=== PATIENT | female | born 1955 | race Caucasian/White ===

== ENCOUNTER 2020-02-01 11:46 | Observation (INO) ==
[2020-02-01] MEDS ORDERED: SODIUM CHLORIDE 0.9% 500 ML IV SCH (12:15)
--- NOTE | 2020-02-01 12:16 | Emergency Department Note ---
Impression & Plan Syncope and collapse, Acute hypotension, Elevated troponin I level ED Provider Note Provider: Salvador Cat MD DATE OF SERVICE: 02/01/2020 CHIEF COMPLAINT: Syncope, weakness HISTORY OF PRESENT ILLNESS: Patient is a 64-year-old female with a past medical history of Sjogren's disease, MRSA infections, lupus, histoplasmosis presenting here today via EMS from her daughter's house in [facility] after syncopal event. Patient states 3 and half weeks ago she was in [place] where she lives and had syncopal episode and was taken to hospital in found to have severe cardiac disease requiring 3 stents. Patient states that she did well and went home had a UTI and was back for a night and then as her daughter lives in [facility] here came home with her to recover here. Patient states she is been doing well until yesterday she started feel generally weak. She had some possible near syncope yesterday at home but was doing well when she awoke this morning. Went down had breakfast okay. Patient states that she then went for a shower and in the shower suddenly became dizzy and then collapsed. She denies striking her head or head pain. She denies any chest pain palpitations sensation or shortness of breath during this. She states she was a little bit nauseous yesterday but not today. Daughter states she heard the sound went to check on her and the patient was on the floor not complaining of pain but then for about 90 seconds began to moan and was not very responsive although leaning into her. Had a darkish bowel movement at that time. She the patient denies any history of bloody or dark bowel movements in the past and there was no blood per the daughter and today's. EMS was activated at this point and she syncopized several more times for EMS upon their arrival was found to be hypotensive. Brought here for further care. Patient currently is lying in stretcher and denies complaint. Denies any pain, specifically chest pain or abdominal pain or head pain, denies any shortness of breath or palpitation sensation. Denies any nausea or abdominal discomfort. Patient states she does feel maybe a little bit generally weak particularly earlier and yesterday but not so much at the moment lying flat. Patient states that she has been wearing a LifeVest since discharge due to a reported EF of around 20% but was obviously not wearing it during the incident in the shower today. She has not had any discharges of the LifeVest per her report. REVIEW OF SYSTEMS: A total of 10 review of systems was obtained and negative except as stated above in the HPI. PAST MEDICAL HISTORY: As noted above MEDICATIONS: Reviewed home medication list the patient presents with. SOCIAL HISTORY: Resident of [place] but currently staying in town with daughter. PHYSICAL EXAM: GENERAL: alert and oriented in no acute distress on stretcher Head: normocephalic and atraumatic EYES: No injection, discharge or icterus. NECK: Trachea midline. Supple. ENT: Mucous membranes pink and moist. LUNGS: Airway patent. No retractions. Breath sounds clear with good air entry bilaterally. HEART: Regular rate and rhythm. No chest wall tenderness ABDOMEN: Soft and non-tender, without guarding or rebound. SKIN: Acyanotic, warm, dry EXTREMITIES: Without swelling, tenderness or deformity NEUROLOGICAL: No focal deficits. No aphasia. No facial droop or slurred speech. Normal strength and tone in the extremities. Sensation to gross touch normal. EK normal sinus rhythm without PVC or PAC. There is lateral V5 V6 and V4 slight ST depression with significant T wave inversion. aVL T wave inversion noted. Prolonged QT. No priors available CONTINUOUS CARDIAC MONITORING: was ordered and showed a heart rate of 76 bpm in normal sinus rhythm Patient's laboratory studies and imaging reviewed. Differential includes Vasovagal event, dehydration, infection, hypoglycemia, electrolyte abnormalities, cardiac sources, intracerebral event, pulmonary embolism, seizure, toxicologic, neurologic, as well as other pathologies. IMPRESSION/MEDICAL DECISION MAKING: Patient presents after syncopal events and weakness. Patient is a fairly benign exam but notable hypotension on initial vital signs. Given a small fluid bolus cautiously given her history of reduced EF. EKG shows some lateral changes and T wave inversions but unsure of prior morphologies is no priors are available. Patient persistently hypotensive here but again asymptomatic without chest pain. She has not been out of bed during her time here. Laboratory studies show mild anemia but similar from the portal values availed to me that the patient's daughter is able to bring up on their computer. White count of 12 of unclear significance. Chest x-ray that evidence of pneumonia or pulmonary edema. Troponin is slightly elevated unsure if this is just residual from her cardiac event. No significant electrolyte abnormality and no significant renal dysfunction. Given the recent travel and her persistent hypotension CT of the chest was completed exclude PE. CT scan without evidence of this or occult pneumonia. Placed an 18-gauge IV and the right arm with ultrasound guidance for this. Patient requires admission in any event. Patient's daughter was able obtain from the portal some imaging from prior transthoracic echo from January 12 showing an EF of 20%. Do concerned she could have worsening cardiac issue although again denies any acute pain at this point. Hospitalist was contacted. DIAGNOSIS: Hypotension, syncope, elevated troponin DISPOSITION: Hospitalist will evaluate Patient was agreeable with this plan. Critical Care I have personally spent 32 minutes of critical care time in the direct management of this patient. This includes bedside care, interpretation of d iagnostic studies, and testing, discussion with consultants, patient, and family members, and other required patient management activities. These 32 minutes is in excess of all separately billable procedures. Past Med/Surg History Medical History (Updated 02/01/20 @ 18:25 by Nicki Cornelius MD) DM2 (diabetes mellitus, type 2) GERD (gastroesophageal reflux disease) Hypothyroidism Insomnia Lupus [place] (myocardial infarction) Osteoporosis Rheumatoid arthritis UTI (urinary tract infection) Surgical History (Updated 02/01/20 @ 18:25 by Nicki Cornelius MD) H/O arthroscopic knee surgery H/O: hysterectomy History of open reduction and internal fixation (ORIF) procedure S/P appendectomy Social History (Updated 02/01/20 @ 18:26 by Nicki Cornelius MD) Smoking Status: Former smoker Age Started Using Tobacco: 17; Age Quit Using Tobacco: 64; packs per day: 0.5; Second Hand Exposure: No; Hx Alcohol Use: Yes Alcohol type: wine Hx Substance Use: No Preferred Language: Nepalese [employer]inder [employer] Feeder Required: No Beliefs That Will Affect Care: Yazdanism Current Living Situation: Family Feels Safe at Home: Yes Assistive Devices: Cane, Denture - Upper, Denture - Lower and Glasses Allergies Allergies Allergy/AdvReac Type Severity Reaction Status Date / Time metoclopramide Allergy Severe Breathing Unverified 02/01/20 12:48 Trouble Home Meds Home Medications Medication Instructions Recorded Confirmed amitriptyline 10 - 20 mg PO HS 02/01/20 02/01/20 aspirin 81 mg PO DAILY 02/01/20 02/01/20 atorvastatin 40 mg PO DAILY 02/01/20 02/01/20 denosumab [Prolia] 60 mg SUBCUT Q6M 02/01/20 02/01/20 furosemide 20 mg PO DAILY 02/01/20 02/01/20 levothyroxine 100 mcg PO 0600 02/01/20 02/01/20 linagliptin [Tradjenta] 5 mg PO DAILY 02/01/20 02/01/20 lisinopril 2.5 mg PO BID 02/01/20 02/01/20 melatonin 10 mg PO HS 02/01/20 02/01/20 metoprolol succinate 12.5 mg PO BID 02/01/20 02/01/20 omeprazole 40 mg PO DAILY 02/01/20 02/01/20 oxycodone-acetaminophen [Percocet] 1 tab PO Q6H PRN 02/01/20 02/01/20 polyethylene glycol 3350 [Miralax] 17 g PO DAILY 02/01/20 02/01/20 potassium 99 mg PO DAILY 02/01/20 02/01/20 prednisone 5 mg PO HS 02/01/20 02/01/20 sertraline [Zoloft] 50 mg PO DAILY 02/01/20 02/01/20 ticagrelor [Brilinta] 90 mg PO BID 02/01/20 02/01/20 Results & Data (ED) Vital Signs Vital Signs - 24 hr 02/01/20 11:53 02/01/20 12:03 02/01/20 12:10 Temperature 37 C Temperature Source Oral Pulse Rate 77 78 Pulse Rate from SpO2 Sensor Pulse Rhythm Regular Respiratory Rate 19 20 Respiratory Effort / Characteristics Non-Labored Spontaneous Respiratory Depth Normal Respiratory Pattern Regular Blood Pressure 72/47 L 72/47 L Blood Pressure Mean 55 49 Pulse Oximetry 98 98 99 Oxygen Delivery Method Room Air Room Air Sepsis Recent Fever Within 48 Hours No Sepsis New/Unexplained Change in Mental Status No Sepsis Action Taken by Nursing No Action Required 02/01/20 12:18 02/01/20 12:30 02/01/20 12:45 Temperature Temperature Source Pulse Rate 79 77 76 Pulse Rate from SpO2 Sensor 79 78 77 Pulse Rhythm Respiratory Rate 13 18 20 Respiratory Effort / Characteristics Respiratory Depth Respiratory Pattern Blood Pressure 78/43 L 83/49 L 87/57 L Blood Pressure Mean 47 52 66 Pulse Oximetry 100 100 96 Oxygen Delivery Method Sepsis Recent Fever Within 48 Hours Sepsis New/Unexplained Change in Mental Status Sepsis Action Taken by Nursing 02/01/20 13:00 02/01/20 13:15 02/01/20 13:30 Temperature Temperature Source Pulse Rate 78 78 77 Pulse Rate from SpO2 Sensor 78 78 78 Pulse Rhythm Respiratory Rate 18 18 18 Respiratory Effort / Characteristics Respiratory Depth Respiratory Pattern Blood Pressure 81/53 L 79/55 L 87/62 L Blood Pressure Mean 59 67 67 Pulse Oximetry 99 99 99 Oxygen Delivery Method Sepsis Recent Fever Within 48 Hours Sepsis New/Unexplained Change in Mental Status Sepsis Action Taken by Nursing 02/01/20 13:33 02/01/20 13:45 02/01/20 14:00 Temperature Temperature Source Pulse Rate 81 81 79 Pulse Rate from SpO2 Sensor 82 81 80 Pulse Rhythm Respiratory Rate 13 16 19 Respiratory Effort / Characteristics Respiratory Depth Respiratory Pattern Blood Pressure 73/53 L 76/57 L 80/61 L Blood Pressure Mean 57 62 66 Pulse Oximetry 100 99 100 Oxygen Delivery Method Sepsis Recent Fever Within 48 Hours Sepsis New/Unexplained Change in Mental Status Sepsis Action Taken by Nursing 02/01/20 14:24 02/01/20 14:30 02/01/20 14:45 Temperature Temperature Source Pulse Rate 79 78 79 Pulse Rate from SpO2 Sensor 82 78 80 Pulse Rhythm Respiratory Rate 17 16 17 Respiratory Effort / Characteristics Respiratory Depth Respiratory Pattern Blood Pressure 76/52 L 80/52 L 79/52 L Blood Pressure Mean 59 57 59 Pulse Oximetry 92 98 100 Oxygen Delivery Method Sepsis Recent Fever Within 48 Hours Sepsis New/Unexplained Change in Mental Status Sepsis Action Taken by Nursing 02/01/20 15:16 02/01/20 15:30 02/01/20 15:31 Temperature Temperature Source Pulse Rate 81 78 80 Pulse Rate from SpO2 Sensor 83 78 84 Pulse Rhythm Respiratory Rate 14 22 13 Respiratory Effort / Characteristics Respiratory Depth Respiratory Pattern Blood Pressure 63/45 L Blood Pressure Mean 49 Pulse Oximetry 100 100 100 Oxygen Delivery Method Sepsis Recent Fever Within 48 Hours Sepsis New/Unexplained Change in Mental Status Sepsis Action Taken by Nursing Laboratory Data Result diagrams: 02/01/20 12:30 02/01/20 12:30 Lab Results 02/01/20 02/01/20 02/01/20 Range/Units 12:30 12:30 12:30 WBC 12.70 H (4.8-10.8) K/uL RBC 3.72 L (4.2-5.4) M/uL Hgb 10.3 L (12.0-16.0) g/dL Hct 33.2 L (37-47) % MCV 89.2 (80-100) fL MCH 27.7 (25-34) pg MCHC 31.0 L (32-36) g/dL RDW Std Deviation 50.5 H (36.4-46.3) fL RDW Coeff of Severino 15.5 H (11.5-14.5) % Plt Count 315 (130-400) K/uL MPV 10.6 H (7.4-10.4) fL Immature Gran % (Auto) 0.3 % Neut % (Auto) 78.3 % Lymph % (Auto) 14.3 % Citrus % (Auto) 6.1 % Eos % (Auto) 0.8 % Baso % (Auto) 0.2 % Neut # (Auto) 9.95 H (1.4-6.5) K/uL Lymph # (Auto) 1.82 (1.2-3.4) K/uL Citrus # (Auto) 0.77 H (0.11-0.59) K/uL Eos # (Auto) 0.10 (0-0.5) K/uL Baso # (Auto) 0.02 (0-0.2) K/uL Immature Gran # (Auto) 0.04 H (0.00-0.02) K/uL PT 10.9 (9.0-12.0) Seconds INR 1.0 (0.9-1.1) APTT < 20.0 L (21.0-31.0) Seconds PTT Ratio 0.7 Sodium 139 (136-145) mmol/L Potassium 3.5 (3.5-5.1) mmol/L Chloride 104 (98-107) mmol/L Carbon Dioxide 26 (21-32) mmol/L Anion Gap 9.0 (3-11) BUN 17 (7-18) mg/dl Creatinine 1.01 (0.6-1.2) mg/dl Est Cr Clr Drug Dosing 46.7 ml/min Est GFR ( Amer) 69.1 Est GFR (Non-Af Amer) 59.6 BUN/Creatinine Ratio 16.9 (10-20) Glucose 154 H (70-99) mg/dl Calcium 8.6 (8.5-10.1) mg/dl Magnesium 2.0 (1.8-2.4) mg/dl Total Bilirubin 0.3 (0.2-1) mg/dl AST 17 (15-37) U/L ALT 19 (12-78) U/L Alkaline Phosphatase 85 (45-117) U/L Troponin I 0.069 H* (0-0.045) ng/ml Total Protein 7.2 (6.4-8.2) gm/dl Albumin 3.3 L (3.4-5.0) gm/dl Globulin 3.9 (2.5-4.0) gm/dl Albumin/Globulin Ratio 0.8 L (0.9-2) TSH 2.920 (0.300-4.500) uIu/ml Random Cortisol mcg/dl 02/01/20 Range/Units 12:39 WBC (4.8-10.8) K/uL RBC (4.2-5.4) M/uL Hgb (12.0-16.0) g/dL Hct (37-47) % MCV (80-100) fL MCH (25-34) pg MCHC (32-36) g/dL RDW Std Deviation (36.4-46.3) fL RDW Coeff of Severino (11.5-14.5) % Plt Count (130-400) K/uL MPV (7.4-10.4) fL Immature Gran % (Auto) % Neut % (Auto) % Lymph % (Auto) % Citrus % (Auto) % Eos % (Auto) % Baso % (Auto) % Neut # (Auto) (1.4-6.5) K/uL Lymph # (Auto) (1.2-3.4) K/uL Citrus # (Auto) (0.11-0.59) K/uL Eos # (Auto) (0-0.5) K/uL Baso # (Auto) (0-0.2) K/uL Immature Gran # (Auto) (0.00-0.02) K/uL PT (9.0-12.0) Seconds INR (0.9-1.1) APTT (21.0-31.0) Seconds PTT Ratio Sodium (136-145) mmol/L Potassium (3.5-5.1) mmol/L Chloride (98-107) mmol/L Carbon Dioxide (21-32) mmol/L Anion Gap (3-11) BUN (7-18) mg/dl Creatinine (0.6-1.2) mg/dl Est Cr Clr Drug Dosing ml/min Est GFR ( Amer) Est GFR (Non-Af Amer) BUN/Creatinine Ratio (10-20) Glucose (70-99) mg/dl Calcium (8.5-10.1) mg/dl Magnesium (1.8-2.4) mg/dl Total Bilirubin (0.2-1) mg/dl AST (15-37) U/L ALT (12-78) U/L Alkaline Phosphatase (45-117) U/L Troponin I (0-0.045) ng/ml Total Protein (6.4-8.2) gm/dl Albumin (3.4-5.0) gm/dl Globulin (2.5-4.0) gm/dl Albumin/Globulin Ratio (0.9-2) TSH (0.300-4.500) uIu/ml Random Cortisol 25.69 mcg/dl Administered Medications Discontinued Medications Sodium Chloride (Nss) 500 mls @ 999 mls/hr IV .Q31M MARY Stop: 02/01/20 12:45 Last Infusion: 02/01/20 14:28 Dose: 0 mls/hr Documented by: [id number] Admin: 02/01/20 12:19 Dose: 999 mls/hr Documented by: [id number] Ioversol (Optiray 320 125ml) 120 ml IV ONCE ONE Stop: 02/01/20 14:17 Last Admin: 02/01/20 14:17 Dose: 120 ml Documented by: [id number] Potassium Chloride (Potassium Chloride 20 Meq Tabcr) 40 meq PO NOW STA Stop: 02/01/20 17:47 Last Admin: 02/01/20 18:09 Dose: 40 meq Documented by: [id number] Discharge Plan Visit Data Chief Complaint: Syncope Stated Complaint: Syncope, [place] 2 weeks ago ED Provider: Salvador Cat Discharge Problem: Syncope and collapse, Acute hypotension, Elevated troponin I level Patient Disposition: Admitted As Inpatient Discharge Instructions Interventions: ED Discharge Assessment Last Done: 02/01/20 17:44
--- NOTE | 2020-02-01 12:35 | XRay Report ---
XR chest 1V portable HISTORY: 64 years-old Female syncope acute syncope COMPARISON: None TECHNIQUE: Portable AP view of the chest FINDINGS: Cardiac silhouette is mildly enlarged. No pneumothorax, pleural effusion, airspace consolidation or o vert pulmonary edema. Coronary arterial stent grafts. Partially imaged cervical spine fusion hardware . Surgical clips project over the right neck. Subacute appearing healing rib fractures of the anterol ateral right fifth, sixth and seventh ribs. IMPRESSION: 1. Cardiomegaly without acute process. 2. Subacute healing fractures of the anterior right fifth, sixth and seventh ribs. ACT 112: Negative or not required by law. The above report was generated using voice recognition software. It may contain grammatical, syntax o r spelling errors. Electronically signed by: Too Cedeno M.D. 02/01/2020 12:34 PM
[2020-02-01 12:51] LABS: Basophils # (auto) 0.02 K/uL (0-0.2); Basophils % (auto) 0.2 %; Eosinophils % (auto) 0.8 %; Hematocrit (blood only) 33.2 % (37-47); Hemoglobin 10.3 g/dL (12.0-16.0); Immature Granulocytes # (auto) 0.04 K/uL (0.00-0.02); Immature Granulocytes % (auto) 0.3 %; Lymphocytes # (auto) 1.82 K/uL (1.2-3.4); Lymphocytes % (auto) 14.3 %; Mean Corpuscular Hemoglobin 27.7 pg (25-34); Mean Corpuscular Volume 89.2 fL (80-100); Mean Platelet Volume 10.6 fL (7.4-10.4); Monocytes # (auto) 0.77 K/uL (0.11-0.59); Monocytes % (auto) 6.1 %; Neutrophils # (auto) 9.95 K/uL (1.4-6.5); Neutrophils % (auto) 78.3 %; Platelet Count 315 K/uL (130-400); RDW Coefficient of Variation 15.5 % (11.5-14.5); RDW Standard Deviation 50.5 fL (36.4-46.3); Red Blood Count 3.72 M/uL (4.2-5.4)
[2020-02-01 12:59] LABS: Partial Thromboplastin Ratio 0.7; Partial Thromboplastin Time < 20.0 Seconds (21.0-31.0); Prothrombin Time 10.9 Seconds (9.0-12.0)
[2020-02-01 13:13] LABS: Albumin Level 3.3 gm/dl (3.4-5.0); BUN Creatinine Ratio 16.9 (10-20); Calcium 8.6 mg/dl (8.5-10.1); Creatinine Clr Calc Pharmacy 46.7 ml/min; Est GFR (African American) 69.1; Est GFR (Non-African American) 59.6; Potassium 3.5 mmol/L (3.5-5.1)
[2020-02-01 13:24] LABS: Albumin Globulin Ratio 0.8 (0.9-2); Bilirubin,Total 0.3 mg/dl (0.2-1); Globulin 3.9 gm/dl (2.5-4.0); Thyroid Stimulating Hormone 2.92 uIu/ml (0.300-4.500); Total Protein 7.2 gm/dl (6.4-8.2); Troponin I 0.069 ng/ml (0-0.045)
[2020-02-01] MEDS ORDERED: OPTIRAY 320 125ml IV ONE (14:16)
--- NOTE | 2020-02-01 14:33 | CT Scan Report ---
CHEST CTA for PULMONARY ARTERIES CT DOSE: 227.23 mGy.cm HISTORY: PE, syncope, travel TECHNIQUE: Multiaxial CT images of the chest were performed following the intravenous administration of contrast to evaluate the pulmonary arteries. Maximal intensity projection images were also obtaine d. A dose lowering technique was utilized adhering to the principles of ALARA. COMPARISON STUDY: Chest 02/01/2020. FINDINGS: There are trace bilateral pleural effusions. Limited views of the upper abdomen demonstrate normal liver and spleen. The heart is mildly enlarged. No pericardial effusion. Multiple surgical cl ips adjacent to the thyroid gland. Partial visualization of cervical spinal fusion hardware. Mild dif fuse body wall edema. No significant mediastinal or hilar lymphadenopathy. Normal caliber esophagus. There is a calcified mediastinal lymph nodes. Normal caliber thoracic aorta with no evidence for diss ection. Heavily calcified bilateral carotid arteries with multiple left coronary artery stents noted. No filling defects within the pulmonary arteries to suggest pulmonary embolus. Healing right fifth t hrough seventh rib fractures. No acute fractures within the visualized osseous structures. Patchy and linear densities within the lung bases posteriorly favor subsegmental atelectasis. No pneumothorax. The central airways are patent. Mild emphysema. IMPRESSION: 1. No evidence for pulmonary embolus. 2. Trace bilateral pleural effusions. 3. Bibasilar linear densities favor subsegmental atelectasis. 4. Mild emphysema. 5. Healing right fifth through seventh rib fractures. No pneumothorax. ACT 112: Negative or not required by law. Electronically signed by: Mohsen Guerin M.D. 02/01/2020 2:32 PM
[2020-02-01] MEDS ORDERED: ONDANSETRON INJ 2 MG/ML 2 ML VIAL IV PRN (15:34)
[2020-02-01] MEDS ORDERED: ACETAMINOPHEN 325 MG TAB PO PRN (15:34)
[2020-02-01] MEDS ORDERED: MAGNESIUM HYDROXIDE SUSP 30 ML UDC PO PRN (15:34)
[2020-02-01] MEDS ORDERED: NITROGLYCERIN SL 0.4 MG/TAB TAB SL PRN (15:34)
[2020-02-01] MEDS ORDERED: POLYETHYLENE (MIRALAX) 17 GM PACK PO PRN (15:34)
--- NOTE | 2020-02-01 15:53 | Cardiology Consultation ---
Date of Consultation February 01, 2020 Assessment & Plan (1) Syncope and collapse: Her syncopal events sound like primary hypotension rather than an arrhythmia, there does seem to be an orthostatic component but she is supine now and remains hypotensive. I cannot exclude an arrhythmia except that the rescue people were there during several of her events after the initial one and should have noted if it was an arrhythmia but I do not have documentation of that. (2) Acute hypotension: She is very hypotensive now, she is on minimal cardiac medications and no changes were made to her medications recently and she has been taking them regularly and she seems very compliant. Barring an error in medications I suspect the low blood pressures from some other cause. It does not seem like a cardiac event but I will get an echocardiogram to exclude a pericardial effusion, etc. Of note her blood pressure was normal in office visit 1 week ago and her heart rate was the same then as it is today. (3) Elevated troponin I level: Her troponin level is slightly elevated, I suspect it would be due to demand ischemia and hypotension rather than a primary cardiac event but I would trend troponins to see the pattern. (4) Ischemic cardiomyopathy: She has a presumed ischemic cardiomyopathy. I do not have documentation of that however based on her daughter's history of recent diagnosis of coronary disease and recent stent placement and ejection fraction of 20% several weeks ago I suspect it is ischemic, or possibly ischemic superimposed on nonischemic but that is less likely. She does have wall motion normalities on her echocardiogram. She is being treated for an ischemic cardiomyopathy with low- dose medications (she may not tolerate high dose) and she has a LifeVest in place for primary prevention. History of Present Illness Reason for Consultation: Syncope, cardiomyopathy History of Present Illness This is a 64-year-old woman who lives in [place] however had medical problems there about 1 month ago and therefore was brought to [place] by her daughter to live here. Prior to having problems in [place] about 5 weeks ago she had no known cardiac history. I do not have detailed records, her daughter is present and provides some history. Apparently she was found unresponsive outside of her residence, was brought to the emergency room in [place] about 5 weeks ago and ended up in ICU on a ventilator. I do not know exactly what transpired but she apparently has an ischemic cardiomyopathy, had catheterization where she had stent placement in [place] and ultimately was discharged with a LifeVest. Her daughter then drove her back to [place] about a week ago. She was seen by her mobile developer about a week ago before they left and was doing well. She was feeling relatively well until she took a showe r today and had a syncopal event in the shower, she is not wearing the LifeVest because of the shower. Her daughter helped her in the shower, they did not try to have her set up but called 911 and apparently while the rescue folks were there she had several more unresponsive or partially unresponsive spells but I do not know where the rhythm was documented. She has not had these spells before, she has not had any LifeVest shocks while she was wearing it. She did bring an echocardiography report done January 13, 2020 where her left ventricular ejection fraction is 20% with a moderately enlarged left ventricular cavity and multiple regional wall motion abnormalities. She does have a history of lupus and was on steroids, evidently was off of them in the hospital (at least to her knowledge) and a week ago was started back on prednisone 5 mg daily. Her cardiac medications have not changed. According to records that she brought at her office visit January 24, 2020 her blood pressure was 116/72 and pulse was 78. Based on her medication record she is on furosemide 20 mg daily, lisinopril 2.5 mg twice daily, Toprol succinate 12.5 mg twice daily, prednisone 5 mg daily and no other vasoactive medications. At the time of my evaluation she is feeling well, she is supine in bed and not having any lightheadedness, dizziness, shortness of breath or chest discomfort. Initial evaluation in the emergency room includes electrocardiography where her heart rate is normal, her electrocardiogram is abnormal but without acute change, her troponin is slightly elevated and chest x-ray and CT scan of the chest are unremarkable. Allergies Allergy/AdvReac Type Severity Reaction Status Date / Time metoclopramide Allergy Severe Breathing Unverified 02/01/20 12:48 Trouble Home Medications Home Medications Medication Instructions Recorded Confirmed Type amitriptyline 10 - 20 mg PO HS 02/01/20 02/01/20 History aspirin 81 mg PO DAILY 02/01/20 02/01/20 History atorvastatin 40 mg PO DAILY 02/01/20 02/01/20 History denosumab [Prolia] 60 mg SUBCUT Q6M 02/01/20 02/01/20 History furosemide 20 mg PO DAILY 02/01/20 02/01/20 History levothyroxine 100 mcg PO 0600 02/01/20 02/01/20 History linagliptin [Tradjenta] 5 mg PO DAILY 02/01/20 02/01/20 History lisinopril 2.5 mg PO BID 02/01/20 02/01/20 History melatonin 10 mg PO HS 02/01/20 02/01/20 History metoprolol succinate 12.5 mg PO BID 02/01/20 02/01/20 History omeprazole 40 mg PO DAILY 02/01/20 02/01/20 History oxycodone-acetaminophen [Percocet] 1 tab PO Q6H PRN 02/01/20 02/01/20 History polyethylene glycol 3350 [Miralax] 17 g PO DAILY 02/01/20 02/01/20 History potassium 99 mg PO DAILY 02/01/20 02/01/20 History prednisone 5 mg PO HS 02/01/20 02/01/20 History sertraline [Zoloft] 50 mg PO DAILY 02/01/20 02/01/20 History ticagrelor [Brilinta] 90 mg PO BID 02/01/20 02/01/20 History Patient History Medical History Osteoporosis Social History Smoking Status: Former smoker Preferred Language: Icelandic Feels Safe at Home: Yes Review of Systems Review of Systems: All systems reviewed & are unremarkable except as noted in HPI & below Physical Exam Physical Exam: Constitutional: Alert, cooperative and in no distress. HEENT: Unremarkable Neck: No jugular venous distention, carotid pulses are normal and equal bilaterally without bruits. Pulmonary: Slight basilar crackles, not suggestive of CHF bilaterally. Cardiac: Regular rhythm with no murmur, gallop or rub. Abdomen: Soft, nontender with normal bowel sounds. Extremities: No edema. Distal pulses intact. Neurologic: No focal findings. Gait is steady. Skin: No rash, ecchymoses or petechiae. Results & Data ([facility]) Vital Signs (Past 12 Hours) Vital Signs Temp Pulse Resp BP Pulse Ox 02/01/20 14:45 79 17 79/52 L 100 02/01/20 14:30 78 16 80/52 L 98 02/01/20 14:24 79 17 76/52 L 92 02/01/20 14:00 79 19 80/61 L 100 02/01/20 13:45 81 16 76/57 L 99 02/01/20 13:33 81 13 73/53 L 100 02/01/20 13:30 77 18 87/62 L 99 02/01/20 13:15 78 18 79/55 L 99 02/01/20 13:00 78 18 81/53 L 99 02/01/20 12:45 76 20 87/57 L 96 02/01/20 12:30 77 18 83/49 L 100 02/01/20 12:18 79 13 78/43 L 100 02/01/20 12:10 99 02/01/20 12:03 78 20 72/47 L 98 02/01/20 11:53 37 C 77 19 72/47 L 98 Laboratory Results Cardiac Enzymes 02/01/20 Range/Units 12:30 AST 17 (15-37) U/L Troponin I 0.069 H* (0-0.045) ng/ml Coagulation 02/01/20 Range/Units 12:30 PT 10.9 (9.0-12.0) Seconds APTT < 20.0 L (21.0-31.0) Seconds CBC 02/01/20 Range/Units 12:30 WBC 12.70 H (4.8-10.8) K/uL RBC 3.72 L (4.2-5.4) M/uL Hgb 10.3 L (12.0-16.0) g/dL Hct 33.2 L (37-47) % Plt Count 315 (130-400) K/uL Neut # (Auto) 9.95 H (1.4-6.5) K/uL Lymph # (Auto) 1.82 (1.2-3.4) K/uL R[place] # (Auto) 0.77 H (0.11-0.59) K/uL Eos # (Auto) 0.10 (0-0.5) K/uL Baso # (Auto) 0.02 (0-0.2) K/uL Comprehensive Metabolic Panel 02/01/20 Range/Units 12:30 Sodium 139 (136-145) mmol/L Potassium 3.5 (3.5-5.1) mmol/L Chloride 104 (98-107) mmol/L Carbon Dioxide 26 (21-32) mmol/L BUN 17 (7-18) mg/dl Creatinine 1.01 (0.6-1.2) mg/dl Glucose 154 H (70-99) mg/dl Calcium 8.6 (8.5-10.1) mg/dl AST 17 (15-37) U/L ALT 19 (12-78) U/L Alkaline Phosphatase 85 (45-117) U/L Total Protein 7.2 (6.4-8.2) gm/dl Albumin 3.3 L (3.4-5.0) gm/dl Intake and Output 02/01/20 02/01/20 02/01/20 06:59 14:59 22:59 Intake Total 500 / 500 Balance 500 / 500 Intake: IV 500 / 500 Nss 500 ml @ 999 mls/hr IV . 500 / 500 Q31M [facility] Rx#:[id number] Other: Weight 51.2 kg Patient Weight 02/02/20 06:59 Weight 51.2 kg Diagnostic Findings ECG: An electrocardiogram in the emergency room shows sinus rhythm at 78 bpm with diffuse T wave abnormalities and a somewhat prolonged QT interval. PG Care Time/CCT Total # of Minutes Spent Total Time Spent with Patient: Total time spent is greater than 50% in coordination of care (as documented) at patient's floor/unit and/or counseling patient: Coding Level of Care Code 56776 Initial Inpt Care Lvl 3 Diagnoses Syncope and collapse R55 Acute hypotension I95.9 Elevated troponin I level R79.89 Ischemic cardiomyopathy I25.5
--- NOTE | 2020-02-01 16:38 | History & Physical Report ---
Date of Service February 01, 2020 Assessment & Plan (1) Syncope and collapse: 64 yo F with PMH SC, CAD, chronic systolic CHF with ischemic cardiomyopathy and EF 20%, Lupus, RA on chronic prednisone, hypothyroidism admitted for workup after syncopal episode leading to fall and unresponsiveness in the shower. - Electrolytes unremarkable, normal Cr - TSH WNL - cardiac vs. orthostatic hypotension exacerbated by new cardiac medications and adrenal insufficiency. Sudden onset of symptoms concerning for cardiac arrhythmia, however patient's story of abruptly stopping steroids for multiple weeks supports adrenal/orthostatic picture. Will defer orthostatic vitals until blood pressure higher with sys>90. - ECHO at OSH showed EF 20%; repeat ECHO ordered - trend troponins (initial 0.069) to rule out ischemic event as the cause of syncope - continuous tele monitoring - cardiology consult - holding all HTN medications (lisinopril, metoprolol, lasix) - 25 mg IV hydrocortisone Q8H ordered to help adrenal suppression, after random cortisol added on (2) Acute hypotension: likely secondary to adrenal insufficiency and beta blockade with new cardiac regimen Did not respond to fluid bolus in the ER Giving IV hydrocortisone (3) Ischemic cardiomyopathy: cardiac workup as above pt would benefit from having a art tracer point of contact in [place] after discharge as she plans to make frequent long-term trips back and forth (4) Elevated troponin I level: trending, cardiac workup as above (5) Rib fractures: Noted on imaging Healing could be from previous syncopes 1 month ago Home Percocet as needed (6) CAD (coronary artery disease), [place] coronary artery: With history of 3 drug-eluting stents placed 1 month ago at outside hospital in [place] ECG here with T wave inversions in the lateral leads, no old EKG to compare to. Patient denies chest pain Continue aspirin, Brilinta, statin Holding home metoprolol and lisinopril due to hypotension (7) Depression with anxiety: Continue home sertraline (8) Chronic systolic (congestive) heart failure: LVEF 20% on echocardiogram from outside hospital, presumed ischemic given that she had 3 drug-eluting stents recently placed Holding guideline directed medical therapy of metoprolol and lisinopril and holding Lasix at this time due to hypotension Has life vest but does not need to wear while on nurse monitoring in PCU Will need reevaluation of her LVEF 90 days from previous to see if LV function recovers (9) Insomnia: continue amitriptyline 10 mg QHS for neuropathic pain/insomnia and melatonin (10) DM2 (diabetes mellitus, type 2): placed on trajenta during OSH stay because "sugars were uncontrolled" a1c ordered for am SSI (11) Hypothyroidism: continue 100 mcg levothyroxine TSH here is normal (12) GERD (gastroesophageal reflux disease): contineu 20 mg omeprazole daily (13) Rheumatoid arthritis: stress steroid burst of 25 mg IV Hydrocortisone Q8 as above (14) Lupus: (15) Osteoporosis: on prolia Q6M resolving R rib fractures 5-7, likely from initial fall weeks ago (16) Anemia: Hemoglobin 10, normocytic Likely secondary to chronic disease given recent prolonged hospitalization Check iron studies, B12, folate in the morning Follow CBC (17) DVT prophylaxis: DVT ppx: lovenox Q24h FEN/GI: heart healthy, low salt diet Code Status: full code Dispo: PCU History of Present Illness 64 yo F with PMH SC, Lupus, RA on chronic prednisone, hypothyroidism, stent placement x3, who presents to ED with CC syncope and unresponsiveness in the shower. In [place] She had an SC at the end of November this year, and a few weeks later? was hospitalized for syncope and found to have coronary artery disease requiring placement of 3 SOLEDAD. (Story from family is unclear, she was on a vent and in the ICU for a period of time prior to being able to have the stents placed). She was sent home with a Life Vest to wear all the time. (of note she states she did not receive her daily 5 mg prednisone for 3-4 weeks while in the hospital). She then drove with her daughter this past weekend from [place] to [facility] so she could stay here with her daughter and arrived here 3 nights ago. Yesterday she was feeling unwell and felt dizzy upon standing up from bed so she promptly sat back down. This morning she felt better and was able to get into the shower on her own. It was in the shower that she had the syncopal episode and fell into her shower seat. She denies any presyncopal symptoms; no lightheadedness,dizziness, blurry vision, palpitations, chest pain, trouble breathing. Daughter states patient was unresponsive for about 1 minute, at which time she called EMS to help bring her out of the shower and to the ER. She was able to quickly regain consciousness, but then was going in and out of consciousness? and unable to answer most of the EMS questions. In the ER she denies any current chest pain, SOB, dyspnea, palpitations, lightheadedness, dizziness while laying in bed. She denies any recent activity or life changes outside of driving to [place]. She has been wearing the Life Vest at all times except for when shower. She denies any BRBPR or melanotic stools, though her daughter says she had a dark BM in the shower after passing out. She was noted to be quite hypotensive in the ER with systolic blood pressures in the 70s and it did not respond to 500 mL bolus of normal saline. She is being admitted for ACS rule out/syncopal workup. Primary Care Provider: NO PCP Allergies Allergy/AdvReac Type Severity Reaction Status Date / Time metoclopramide Allergy Severe Breathing Unverified 02/01/20 12:48 Trouble Home Medications Home Medications Medication Instructions Recorded Confirmed Type amitriptyline 10 - 20 mg PO HS 02/01/20 02/01/20 History aspirin 81 mg PO DAILY 02/01/20 02/01/20 History atorvastatin 40 mg PO DAILY 02/01/20 02/01/20 History denosumab [Prolia] 60 mg SUBCUT Q6M 02/01/20 02/01/20 History furosemide 20 mg PO DAILY 02/01/20 02/01/20 History levothyroxine 100 mcg PO 0600 02/01/20 02/01/20 History linagliptin [Tradjenta] 5 mg PO DAILY 02/01/20 02/01/20 History lisinopril 2.5 mg PO BID 02/01/20 02/01/20 History melatonin 10 mg PO HS 02/01/20 02/01/20 History metoprolol succinate 12.5 mg PO BID 02/01/20 02/01/20 History omeprazole 40 mg PO DAILY 02/01/20 02/01/20 History oxycodone-acetaminophen [Percocet] 1 tab PO Q6H PRN 02/01/20 02/01/20 History polyethylene glycol 3350 [Miralax] 17 g PO DAILY 02/01/20 02/01/20 History potassium 99 mg PO DAILY 02/01/20 02/01/20 History prednisone 5 mg PO HS 02/01/20 02/01/20 History sertraline [Zoloft] 50 mg PO DAILY 02/01/20 02/01/20 History ticagrelor [Brilinta] 90 mg PO BID 02/01/20 02/01/20 History Past Med/Surg History Medical History (Updated 02/01/20 @ 21:57 by Elaine Lugo MD) CAD (coronary artery disease), [place] coronary artery Chronic systolic (congestive) heart failure Depression with anxiety DM2 (diabetes mellitus, type 2) GERD (gastroesophageal reflux disease) Hypothyroidism Insomnia Lupus SC (myocardial infarction) Osteoporosis Rheumatoid arthritis UTI (urinary tract infection) Surgical History (Updated 02/01/20 @ 18:25 by Nicki Cornelius MD) H/O arthroscopic knee surgery H/O: hysterectomy History of open reduction and internal fixation (ORIF) procedure S/P appendectomy Family History (Updated 02/01/20 @ 21:45 by Elaine Lugo MD) Other Family history non-contributory Social History (Updated 02/01/20 @ 18:26 by Nicki Cornelius MD) Smoking Status: Former smoker Age Started Using Tobacco: 17; Age Quit Using Tobacco: 64; packs per day: 0.5; Second Hand Exposure: No; Hx Alcohol Use: Yes Alcohol type: wine Hx Substance Use: No Preferred Language: Qatari Recreation Program Coordinator Required: No Beliefs That Will Affect Care: Bahai Current Living Situation: Family Feels Safe at Home: Yes Assistive Devices: Glasses Review of Systems Constitutional: + weight loss; no fever, no chills, no sweats and no fatigue Eyes: no blind spots and no diplopia Respiratory: no cough, no dyspnea, no pain on inspiration and no wheezing Cardiovascular: + chest pain, + lightheadedness, + syncope and + edema; no dyspnea on exertion, no palpitations and no calf pain Gastrointestinal: + heartburn and + melena; no abdominal pain, no nausea, no vomiting, no change in stools, no constipation, no diarrhea/loose stools and no blood in stools Genitourinary: no dysuria and no hematuria Musculoskeletal: + back pain Neurologic: + falls and + syncope Physical Exam Constitutional: + thin; no acute distress and not intoxicated appearing Eyes: PERRL, conjunctivae normal, anicteric sclerae Neck: trachea midline, no thyromegaly Respiratory: normal respiratory effort, lungs clear to auscultation no respiratory distress and no cough Auscultation: + wheezes; no crackles, no rales and no rhonchi Cardiovascular: RRR, no murmur, no edema Heart Sounds: no gallop, no murmur and no cardiac rub Vessels: posterior tibial pulses present Extremities: no edema Gastrointestinal (Abdomen): Inspection/Auscultation: abdomen normal to inspection and normal bowel sounds; abdomen not distended Percussion/Palpation: abdomen soft; abdomen nontender and no guarding Musculoskeletal: negative giancarlo's sign bilaterally, no calf tenderness to palpation or edema Skin: no rashes, warm and dry Neurologic: A&Ox3, moving all limbs spontaneously, no facial droop Results & Data Results & Data ([facility]) Vital Signs (Past 12 Hours) Vital Signs Temp Pulse Resp BP Pulse Ox 02/01/20 14:45 79 17 79/52 L 100 02/01/20 14:30 78 16 80/52 L 98 02/01/20 14:24 79 17 76/52 L 92 02/01/20 14:00 79 19 80/61 L 100 02/01/20 13:45 81 16 76/57 L 99 02/01/20 13:33 81 13 73/53 L 100 02/01/20 13:30 77 18 87/62 L 99 02/01/20 13:15 78 18 79/55 L 99 02/01/20 13:00 78 18 81/53 L 99 02/01/20 12:45 76 20 87/57 L 96 02/01/20 12:30 77 18 83/49 L 100 02/01/20 12:18 79 13 78/43 L 100 02/01/20 12:10 99 02/01/20 12:03 78 20 72/47 L 98 02/01/20 11:53 37 C 77 19 72/47 L 98 Laboratory Results WBC 12.70 K/uL (4.8-10.8) H 02/01/20 12:30 RBC 3.72 M/uL (4.2-5.4) L 02/01/20 12:30 Hgb 10.3 g/dL (12.0-16.0) L 02/01/20 12:30 Hct 33.2 % (37-47) L 02/01/20 12:30 MCV 89.2 fL (80-100) 02/01/20 12:30 MCH 27.7 pg (25-34) 02/01/20 12:30 MCHC 31.0 g/dL (32-36) L 02/01/20 12:30 RDW Std Deviation 50.5 fL (36.4-46.3) H 02/01/20 12:30 RDW Coeff of Severino 15.5 % (11.5-14.5) H 02/01/20 12:30 Plt Count 315 K/uL (130-400) 02/01/20 12:30 MPV 10.6 fL (7.4-10.4) H 02/01/20 12:30 Immature Gran % (Auto) 0.3 % 02/01/20 12:30 Neut % (Auto) 78.3 % 02/01/20 12:30 Lymph % (Auto) 14.3 % 02/01/20 12:30 [place] % (Auto) 6.1 % 02/01/20 12:30 Eos % (Auto) 0.8 % 02/01/20 12:30 Baso % (Auto) 0.2 % 02/01/20 12:30 Neut # (Auto) 9.95 K/uL (1.4-6.5) H 02/01/20 12:30 Lymph # (Auto) 1.82 K/uL (1.2-3.4) 02/01/20 12:30 [place] # (Auto) 0.77 K/uL (0.11-0.59) H 02/01/20 12:30 Eos # (Auto) 0.10 K/uL (0-0.5) 02/01/20 12:30 Baso # (Auto) 0.02 K/uL (0-0.2) 02/01/20 12:30 Immature Gran # (Auto) 0.04 K/uL (0.00-0.02) H 02/01/20 12:30 PT 10.9 Seconds (9.0-12.0) 02/01/20 12:30 INR 1.0 (0.9-1.1) 02/01/20 12:30 APTT < 20.0 Seconds (21.0-31.0) L 02/01/20 12:30 PTT Ratio 0.7 02/01/20 12:30 Sodium 139 mmol/L (136-145) 02/01/20 12:30 Potassium 3.5 mmol/L (3.5-5.1) 02/01/20 12:30 Chloride 104 mmol/L (98-107) 02/01/20 12:30 Carbon Dioxide 26 mmol/L (21-32) 02/01/20 12:30 Anion Gap 9.0 (3-11) 02/01/20 12:30 BUN 17 mg/dl (7-18) 02/01/20 12:30 Creatinine 1.01 mg/dl (0.6-1.2) 02/01/20 12:30 Est Cr Clr Drug Dosing 46.7 ml/min 02/01/20 12:30 Est GFR ( Amer) 69.1 02/01/20 12:30 Est GFR (Non-Af Amer) 59.6 02/01/20 12:30 BUN/Creatinine Ratio 16.9 (10-20) 02/01/20 12:30 Glucose 154 mg/dl (70-99) H 02/01/20 12:30 Calcium 8.6 mg/dl (8.5-10.1) 02/01/20 12:30 Magnesium 2.0 mg/dl (1.8-2.4) 02/01/20 12:30 Total Bilirubin 0.3 mg/dl (0.2-1) 02/01/20 12:30 AST 17 U/L (15-37) 02/01/20 12:30 ALT 19 U/L (12-78) 02/01/20 12:30 Alkaline Phosphatase 85 U/L (45-117) 02/01/20 12:30 Troponin I 0.069 ng/ml (0-0.045) H* 02/01/20 12:30 Total Protein 7.2 gm/dl (6.4-8.2) 02/01/20 12:30 Albumin 3.3 gm/dl (3.4-5.0) L 02/01/20 12:30 Globulin 3.9 gm/dl (2.5-4.0) 02/01/20 12:30 Albumin/Globulin Ratio 0.8 (0.9-2) L 02/01/20 12:30 TSH 2.920 uIu/ml (0.300-4.500) 02/01/20 12:30 Random Cortisol 25.69 mcg/dl 02/01/20 12:39 EKG: sinus rhythm at a rate of 75, T wave inversions in lateral leads in V4-V6 and III, p waves are present but appear biphasic?, downsloping ST segment depressions in V4-V6 CTA: 1. No evidence for pulmonary embolus. 2. Trace bilateral pleural effusions. 3. Bibasilar linear densities favor subsegmental atelectasis. 4. Mild emphysema. 5. Healing right fifth through seventh rib fractures. No pneumothorax. Supervising Physician Co-Signing Physician Notes I personally examined the patient and verified all ortiz points of history and exam, discussed case, and agree with decision making with Dr. Cornelius with the following additions/exceptions: This patient is a 64-year-old female visiting from out of town with a recent history of prolonged hospital stay for 2-1/2 weeks for syncope and respiratory failure requiring ventilation x3 days and acute metabolic encephalopathy versus toxic encephalopathy as per her daughter's report. She also was found to have severe ischemic cardiomyopathy and severe CAD with 3 stents placed to the heart. She was discharged to home after a 2 and half week stay with a LifeVest in place and return to the hospital for a second hospitalization for 2 days for UTI and acute metabolic encephalopathy. She then recovered from that and returned home with home physical therapy in [place]. She then drove from [place] to [place] 3 days ago to stay at her daughter's house. She began feeling lightheaded with standing yesterday and then had multiple episodes of syncope today after being in the shower. Her life vest was not on at the time. She does not recall prodromal symptoms prior to falling. She was noted to be significantly hypotensive in the ER and was not responding to bolus of normal saline. As it turns out, she was not given her chronic daily prednisone that she has been on for many many years throughout her hospital stay or since [place]. She saw her literacy coach on Thursday who promptly restarted her home dose of prednisone. In the ER here, while lying flat, she feels completely back to her normal self. She is not lightheaded, denies chest pains or shortness of breath. Denies nausea or vomiting, no abdominal pain. Denies palpitations. Her troponin was mildly elevated, her ECG showed lateral T wave inversions and downsloping ST depressions, with no previous ECG to compare to. Her CT angiogram of the chest was negative for PE. Her laboratory values were otherwise fairly unremarkable except for anemia. History and ROS reviewed as above Vitals reviewed Gen: AAOx3, NAD, thin HEENT: Anicteric sclerae, EOMI CV: RRR no mgr nl S1S2, 2+ dorsalis pedis pulses bilaterally, no JVD Pulm: CTAB no wcr Abd: +BS soft NT ND no masses or hernias Ext: No edema, 2+ DP pulses Skin: No rashes, warm/dry Neuro: Full strength throughout Laboratory values reviewed, ECG reviewed, radiology results reviewed Case was discussed with the art tracer. 64-year-old female here with hypotension and multiple syncopal events in the setting of recent new onset severe ischemic cardiomyopathy and severe CAD with recent drug-eluting stents placed. Also with chronic prednisone which she was not on for several weeks. Syncope does not seem to be arrhythmogenic in nature but could be given that she has an LVEF of only 20% in the setting of an ischemic cardiomyopathy-we will continue telemetry monitoring. Keep electrolytes replaced as needed. Check echocardiogram Trend serial troponin to ensure a new ischemic event did not cause for syncope. Follow ECG-no dynamic changes from 1 to this next so far today Appreciate cardiology consultation Hypotension not responding to saline bolus, could be adrenal insufficiency. Start hydrocortisone and increase as needed to bring systolic blood pressure greater than 90. Check random cortisol level Request records from outside hospitalization Holding home metoprolol, lisinopril, and Lasix as above for hypotension Other plan as outlined above Resident Activity Tracking Resident Involvement: Resident Care Provided Care Provided: Adult Hospital Medicine
[2020-02-01] MEDS ORDERED: HYDROCORTISONE SOD SUCCINATE 100 MG/2 ML VIAL IV SCH (16:45)
[2020-02-01] MEDS ORDERED: CARBOHYDRATES FOR HYPOGLYCEMIA PO PRN (17:46)
[2020-02-01] MEDS ORDERED: POTASSIUM CHLORIDE 20 MEQ TABCR PO STA (17:46)
[2020-02-01] MEDS ORDERED: DEXTROSE 50% 50 ML SYRINGE IV PRN (17:46)
[2020-02-01] MEDS ORDERED: GLUCAGON FOR INJ 1 MG VIAL SQ PRN (17:46)
[2020-02-01] MEDS ORDERED: GLUCOSE 40% GEL 15 GM TUBE PO PRN (17:46)
[2020-02-01] MEDS ORDERED: GLUCOSE 10 TABS/TUBE PO PRN (17:46)
[2020-02-01] MEDS ORDERED: HYDROCORTISONE SOD 25 MG in SYRINGE 0 ML IV ONE ×2 (18:15→21:45)
[2020-02-01] MEDS ORDERED: ENOXAPARIN INJ 40 MG/0.4 ML SYR SQ SCH (19:00)
[2020-02-01] MEDS: TICAGRELOR 90 MG TAB PO SCH (19:34)
[2020-02-01] MEDS: OXYCODONE/APAP 7.5/325MG TAB PO PRN (20:25)
[2020-02-01] MEDS ORDERED: AMITRIPTYLINE HCL 10 MG TAB PO SCH (21:00)
[2020-02-01] MEDS ORDERED: MELATONIN 3 MG TAB PO SCH (21:00)
[2020-02-01] MEDS: INSULIN ASPART 100 UNITS/ML 3 ML PEN SC SCH (21:00)
--- NOTE | 2020-02-01 22:02 | Billing Data ---
Date of Service February 01, 2020 Coding Level of Care Code 57907 Initial Inpt Care Lvl 3
[2020-02-02] MEDS ORDERED: HYDROCORTISONE SOD SUCCINATE 100 MG/2 ML VIAL IV SCH
[2020-02-02] MEDS: HYDROCORTISONE SOD 50 MG in SYRINGE 0 ML IV SCH ×2 (01:39→09:34)
[2020-02-02] MEDS ORDERED: HYDROCORTISONE SOD 25 MG in SYRINGE 0 ML IV SCH (02:00)
[2020-02-02] MEDS: OXYCODONE/APAP 7.5/325MG TAB PO PRN (02:20)
[2020-02-02 05:53] LABS: Appearance Urine Clear (Clear); Bilirubin Urine Negative (Negative); Blood Urine Negative (Negative); Color Urine Yellow; Glucose Urine UA Negative (Negative); Ketones Urine Negative (Negative); Leukocyte Esterase Urine Negative (Negative); Nitrite Urine Negative (Negative); Protein Urine Negative (Negative); Specific Gravity Urine 1.027 (1.000-1.030); Urobilinogen Urine Negative (Negative)
[2020-02-02] MEDS ORDERED: LEVOTHYROXINE SODIUM 100 MCG TABLET PO SCH (06:30)
[2020-02-02 07:14] LABS: Hemoglobin 9.1 g/dL (12.0-16.0); Immature Granulocytes # (auto) 0.02 K/uL (0.00-0.02); Immature Granulocytes % (auto) 0.2 %; Lymphocytes # (auto) 0.94 K/uL (1.2-3.4); Lymphocytes % (auto) 11.1 %; Mean Corpuscular Hemoglobin 27.9 pg (25-34); Mean Corpuscular Hgb Conc 31.4 g/dL (32-36); Mean Platelet Volume 10.2 fL (7.4-10.4); Monocytes # (auto) 0.22 K/uL (0.11-0.59); Monocytes % (auto) 2.6 %; Neutrophils # (auto) 7.27 K/uL (1.4-6.5); Neutrophils % (auto) 86.1 %; Platelet Count 343 K/uL (130-400); RDW Coefficient of Variation 15.4 % (11.5-14.5); RDW Standard Deviation 50.5 fL (36.4-46.3); Red Blood Count 3.26 M/uL (4.2-5.4); White Blood Count 8.45 K/uL (4.8-10.8)
[2020-02-02 07:46] LABS: Estimated Average Glucose 126 mg/dl
[2020-02-02] MEDS ORDERED: PNEUMOCOCCAL Polysaccharide Vaccine 25mcg/0.5mL vial/Syr IM ONE (08:00)
[2020-02-02 08:03] LABS: BUN Creatinine Ratio 18.3 (10-20); Calcium 8.4 mg/dl (8.5-10.1); Creatinine Clr Calc Pharmacy 57.9 ml/min; Est GFR (African American) 88.9; Est GFR (Non-African American) 76.7; Magnesium 1.9 mg/dl (1.8-2.4); Phosphorus 3.6 mg/dl (2.5-4.9); Potassium 4.6 mmol/L (3.5-5.1); Troponin I 0.068 ng/ml (0-0.045)
[2020-02-02] MEDS: INSULIN ASPART 100 UNITS/ML 3 ML PEN SC SCH ×2 (08:15→11:57)
--- NOTE | 2020-02-02 08:47 | XCELERA ---
[id number]
[2020-02-02] MEDS ORDERED: PANTOprazole 40 MG TAB PO SCH (09:00)
[2020-02-02] MEDS ORDERED: ASPIRIN 81 MG ECTAB PO SCH (09:00)
[2020-02-02] MEDS ORDERED: ATORVASTATIN 40 MG TAB PO SCH (09:00)
[2020-02-02] MEDS ORDERED: SERTRALINE HCL 50 MG TABLET PO SCH (09:00)
[2020-02-02] MEDS ORDERED: POLYETHYLENE (MIRALAX) 17 GM PACK PO SCH (09:00)
[2020-02-02] MEDS: TICAGRELOR 90 MG TAB PO SCH (09:32)
[2020-02-02 10:41] LABS: Folate (Folic Acid) 6.87 ng/ml (>5.38)
--- NOTE | 2020-02-02 12:05 | Discharge Summary ---
Date of Service February 02, 2020 Principal Diagnosis Pt is feeling much improved. No further syncope. Tolerating diet without issue. Pt denies fever, SOB, chest pain, abd pain, n/v/c/d, LE pain or swelling. Discharge Exam Constitutional WD/WN, vitals as above Eyes normal visual becerra by confrontation and + anicteric sclerae Neck normal visual inspection and trachea midline Respiratory normal respiratory effort, lungs clear to auscultation Cardiovascular Rate/Rhythm: regular rate and regular rhythm Gastrointestinal (Abdomen) Inspection/Auscultation: abdomen not distended Percussion/Palpation: abdomen soft; abdomen nontender Musculoskeletal Head/Neck/Chest: normocephalic and head atraumatic Skin no rashes, warm and dry Neurologic awake; not confused Speech / Cognition: normal speech Psychiatric A+Ox3, euthymic affect Discharge Data Allergies Allergy/AdvReac Type Severity Reaction Status Date / Time metoclopramide Allergy Severe Breathing Unverified 02/01/20 12:48 Trouble Consultations 02/01/20 14:50 ED Decision to Admit Stat 02/01/20 15:34 Consult Cardiology Routine 02/01/20 16:10 Consult Health Information Management Stat Ordered Studies 02/01/20 13:45 CT angio chest PE protocol Stat Hospital Course (1) Syncope and collapse: 64 yo F with PMH IA, CAD, chronic systolic CHF with ischemic cardiomyopathy and EF 20%, Lupus, RA on chronic prednisone, hypothyroidism admitted for workup after syncopal episode leading to fall and unresponsiveness in the shower. - Electrolytes unremarkable, normal Cr - TSH WNL CTA neg for PE - cardiac vs. orthostatic hypotension exacerbated by new cardiac medications and adrenal insufficiency. Sudden onset of symptoms concerning for cardiac arrhythmia, however patient's story of abruptly stopping steroids for multiple weeks supports adrenal/orthostatic picture. Will defer orthostatic vitals until blood pressure higher with sys>90. - ECHO at OSH showed EF 20%; repeat ECHO noted as same - Trops 0.067 x3 Cardiology recs for holding HTN medications on d/c and will f/u in office Home BP checks (pt was already doing this RN LICENSED [employer]ACTICAL) Pt is planning to return to [place] in early February and will f/u with her cards and PCP there (2) Acute hypotension: likely secondary to adrenal insufficiency and beta blockade with new cardiac regimen Random cortisol 25.6 (3) Ischemic cardiomyopathy: cardiac workup as above pt would benefit from having a lens polisher hand point of contact in [place] after discharge as she plans to make frequent long term care pharmacist trips back and forth (4) Elevated troponin I level: As above (5) Rib fractures: Noted on imaging Healing could be from previous syncopes 1 month ago Home Percocet as needed (6) CAD (coronary artery disease), standing rock coronary artery: With history of 3 drug-eluting stents placed 1 month ago at outside hospital in [place] ECG here with T wave inversions in the lateral leads, no old EKG to compare to. Patient denies chest pain Continue aspirin, Brilinta, statin Holding home metoprolol and lisinopril due to hypotension (7) Depression with anxiety: Continue home sertraline (8) Chronic systolic (congestive) heart failure: LVEF 20% on echocardiogram from outside hospital, presumed ischemic given that she had 3 drug-eluting stents recently placed Holding guideline directed medical therapy of metoprolol and lisinopril and holding Lasix at this time due to hypotension Has life vest but does not need to wear while on monitoring analyst in PCU Will need reevaluation of her LVEF 90 days from previous to see if LV function recovers (9) Insomnia: continue amitriptyline 10 mg QHS for neuropathic pain/insomnia and melatonin (10) DM2 (diabetes mellitus, type 2): placed on trajenta during OSH stay because "sugars were uncontrolled" per pt Pt denies hx of DM A1c 6.0 (11) Hypothyroidism: continue 100 mcg levothyroxine TSH here is normal (12) GERD (gastroesophageal reflux disease): contineu 20 mg omeprazole daily (13) Rheumatoid arthritis: stress steroid burst of 25 mg IV Hydrocortisone Q8 as above (14) Lupus: (15) Osteoporosis: on prolia Q6M resolving R rib fractures 5-7, likely from initial fall weeks ago (16) Anemia: Hemoglobin 10, normocytic Likely secondary to chronic disease given recent prolonged hospitalization Iron low at 21, recs for QD supplementation with vit C B12 low normal at 422, recs for SL supplementation with B complex (17) DVT prophylaxis: Total Time Total Time Spent Total Time Spent (In Minutes): >30 Total Time Includes: Examination of the Patient, Discharge Planning, Medication Reconciliation, Communication With Other Providers and Other Discharge Plan Discharge Items Patient Disposition: Home - Self-Care Reason For Visit: SYNCOPE Discharge Diagnosis: Syncope related to hypotension Activity: Resume your previous activity Non-emergency contact: Primary Care Provider and Tip Out Worker Call non-emergency contact if: you have any medication questions and your symptoms worsen Follow-up/Referrals: Peter Ventura MD [Physician] - 02/09/20 10:30 am (early next week) PCP,NO [Primary Care Provider] - Diet: Carb Consistent or DM2 Addtl Attending Provider Instructions: You should check your blood pressure at least once a day, especially with the medication changes. You are being started on iron. This may make you constipated or turn your stool black. You should have your iron levels checked in 2-3 months to ensure that your body is absorbing it properly. You should take vitamin C at the same time that you take your iron. This will help with absorption. This is available over the counter. Your B12 levels were low. You should start taking a supplement for this. I recommend a sublingual (under the tongue) form because it is better absorbed. It is a B complex, meaning it has several types of B vitamins in it. A good brand is Weight Wins and you can find it at [employer] for around $5. You should start taking a probiotic. The one I recommend for most patients is Jarrow EPS 5 billion. It is a mix of 8 different bacteria. You can find this product at [employer] in [place]. You should start with 1 a day. The goal is to have 1 solid bowel movement a day. This may help with the baseline constipation that you take miralax for and also the constipation that can occur with iron use. If after 2 weeks you are still feeling constipated, you can increase to 2 probiotics daily. You can take up to 4 a day, but you want to take the least amount of any type of medication or supplement. If you start having diarrhea, you might be taking too much and should decrease. You should take the probiotic away from your reflux medication. You take the reflux medication in the morning, so I would suggest taking the probiotic at night just before bed. You could also take it 30 minutes prior to taking your reflux medication if this is more convenient. When you return to [place] next month, you should follow up with your cardiology team and primary care there as soon as possible. Pending Studies at Discharge: No Stand-Alone Forms: My [facility], Smoking Cessation Medications and DC Order Prescriptions: New ferrous sulfate [iron] 325 mg (65 mg iron) tablet 325 mg PO DAILY Qty: 30 RF: 0 Continued atorvastatin 40 mg Tablet 40 mg PO DAILY RF: 0 prednisone 5 mg Tablet 5 mg PO HS RF: 0 omeprazole 40 mg Capsule,Delayed Release(Dr/Ec) 40 mg PO DAILY RF: 0 levothyroxine 100 mcg Tablet 100 mcg PO 0600 RF: 0 potassium 99 mg Tablet 99 mg PO DAILY RF: 0 amitriptyline 10 mg Tablet 10 - 20 mg PO HS RF: 0 aspirin 81 mg Tablet,Chewable 81 mg PO DAILY RF: 0 furosemide 20 mg Tablet 20 mg PO DAILY RF: 0 polyethylene glycol 3350 [Miralax] 17 gram/dose Powder 17 g PO DAILY RF: 0 oxycodone-acetaminophen [Percocet] 7.5-325 mg Tablet 1 tab PO Q6H PRN (Reason: Moderate Pain (Scale Score 5-6)) RF: 0 sertraline [Zoloft] 50 mg Tablet 50 mg PO DAILY RF: 0 Prolia 60 mg/mL Syringe 60 mg SUBCUT Q6M RF: 0 Tradjenta 5 mg Tablet 5 mg PO DAILY RF: 0 Brilinta 90 mg Tablet 90 mg PO BID RF: 0 melatonin 10 mg Tablet 10 mg PO HS RF: 0 Discontinued metoprolol succinate 25 mg Tablet Extended Release 24 Hr 12.5 mg PO BID RF: 0 lisinopril 2.5 mg Tablet 2.5 mg PO BID RF: 0 Discharge Orders: Discharge Order (Routine); Ordered 02/02/20 Ordered By: Daniella Ferreira/Other Patient Handouts: Managing Type 2 Diabetes, Managing Diabetes: The A1C Test Admission Data Admit Date/Time: 02/01/20 15:34 Attending Provider: Dainella Lieberman Admit Provider: Nicki Cornelius Primary Care Provider: PCP,NO Other Providers: Elaine Lugo ; Peter Ventura Other Interventions: Discharge Summary Assessment (RN) Last Done: 02/02/20 12:41 Coding Level of Care Code D/C Day Management >30 mins Diagnoses Syncope and collapse R55 Acute hypotension I95.9 Ischemic cardiomyopathy I25.5 Elevated troponin I level R79.89 Rib fractures S22.39XA CAD (coronary artery disease), standing rock coronary artery I25.10 Depression with anxiety F41.8 Chronic systolic (congestive) heart failure I50.22 Insomnia G47.00 DM2 (diabetes mellitus, type 2) E11.9 Hypothyroidism E03.9 GERD (gastroesophageal reflux disease) K21.9 Rheumatoid arthritis M06.9 Lupus M32.9 Osteoporosis M81.0 Anemia D64.9 DVT prophylaxis Z29.9
--- NOTE | 2020-02-02 12:47 | Cardiology Progress Note ---
Date of Service February 02, 2020 Assessment & Plan (1) Syncope and collapse: Her syncopal events leading to this admission sound like primary hypotension rather than an arrhythmia, there did seem to be an orthostatic component but even supine her blood pressure was very low. I cannot exclude an arrhythmia since she was not wearing the LifeVest in the shower, however the rescue personnel were there during several of her events after the initial one and should have noted if it was an arrhythmia but I do not have documentation of that. (2) Acute hypotension: She remains hypotensive although improved, she was on minimal cardiac medications (which have been held since yesterday). It does not seem like a cardiac event and it has responded partially to steroid administration and discontinuation of her cardiac medications. She feels much better. At this point I would continue to hold her cardiac medications as she is on very low doses. (3) Elevated troponin I level: Her troponin levels are slightly elevated in a stable manner, I suspect it is not related to a cardiac event. (4) Ischemic cardiomyopathy: She has a presumed ischemic cardiomyopathy. I do not have documentation of that however based on her daughter's history of recent diagnosis of coronary disease and recent stent placement and ejection fraction of 20% several weeks ago I suspect it is ischemic, or possibly ischemic superimposed on nonischemic but that is less likely. She did have wall motion normalities on her echocardiogram in [place] however here they were felt to be minimal. She was being treated for an ischemic cardiomyopathy with low-dose medications (she may not tolerate high dose) and she has a LifeVest in place for primary prevention. If she goes home today or tomorrow I will make arrangements for her to be seen in the office early next week. She will probably be going back to [place] in several weeks but meanwhile needs to follow-up here. I can reinstitute her cardiac meds if possible based on her blood pressure and symptoms at that time. Admission and Anticipated Discharge Date Admission Date: February 01, 2020 Subjective She is feeling much better today, she has no lightheadedness or dizziness (although her blood pressure remains somewhat low), no shortness of breath or chest discomfort. She is anxious to go home. Physical Exam Physical Exam: Constitutional: Alert, cooperative and in no distress. HEENT: Unremarkable Neck: No jugular venous distention, carotid pulses are normal and equal bilaterally without bruits. Pulmonary: Slight basilar crackles, not suggestive of CHF bilaterally. Cardiac: Regular rhythm with no murmur, gallop or rub. Abdomen: Soft, nontender with normal bowel sounds. Extremities: No edema. Distal pulses intact. Neurologic: No focal findings. Gait is steady. Skin: No rash, ecchymoses or petechiae. Results & Data ([facility]) Vital Signs (Past 12 Hours) Vital Signs Temp Pulse Pulse Resp BP Pulse Ox 02/02/20 11:12 37.0 C 94 H 18 94/60 L 97 02/02/20 07:28 36.8 C 87 18 95/50 L 98 02/02/20 07:00 92 H 02/02/20 04:00 36.7 C 91 H 16 94/59 L 97 Laboratory Results Cardiac Enzymes 02/01/20 02/01/20 02/02/20 Range/Units 12:30 21:46 06:53 AST 17 (15-37) U/L Troponin I 0.069 H* 0.061 H* 0.068 H* (0-0.045) ng/ml Coagulation 02/01/20 Range/Units 12:30 PT 10.9 (9.0-12.0) Seconds APTT < 20.0 L (21.0-31.0) Seconds CBC 02/01/20 02/02/20 Range/Units 12:30 06:53 WBC 12.70 H 8.45 (4.8-10.8) K/uL RBC 3.72 L 3.26 L (4.2-5.4) M/uL Hgb 10.3 L 9.1 L (12.0-16.0) g/dL Hct 33.2 L 29.0 L (37-47) % Plt Count 315 343 (130-400) K/uL Neut # (Auto) 9.95 H 7.27 H (1.4-6.5) K/uL Lymph # (Auto) 1.82 0.94 L (1.2-3.4) K/uL Ballard # (Auto) 0.77 H 0.22 (0.11-0.59) K/uL Eos # (Auto) 0.10 0.00 (0-0.5) K/uL Baso # (Auto) 0.02 0.00 (0-0.2) K/uL Comprehensive Metabolic Panel 02/01/20 02/02/20 Range/Units 12:30 06:53 Sodium 139 137 (136-145) mmol/L Potassium 3.5 4.6 D (3.5-5.1) mmol/L Chloride 104 105 (98-107) mmol/L Carbon Dioxide 26 26 (21-32) mmol/L BUN 17 15 (7-18) mg/dl Creatinine 1.01 0.82 (0.6-1.2) mg/dl Glucose 154 H 214 H (70-99) mg/dl Calcium 8.6 8.4 L (8.5-10.1) mg/dl AST 17 (15-37) U/L ALT 19 (12-78) U/L Alkaline Phosphatase 85 (45-117) U/L Total Protein 7.2 (6.4-8.2) gm/dl Albumin 3.3 L (3.4-5.0) gm/dl Intake and Output 02/01/20 02/02/20 02/02/20 22:59 06:59 14:59 Intake Total 450 / 1350 400 / 1350 Output Total 900 / 900 Balance 450 / 450 -500 / 450 Intake: Oral 450 / 850 400 / 850 Output: Urine 900 / 900 Other: # Unmeasured Voids 2 Weight 50.1 kg 51.6 kg Diagnostic Findings An echocardiogram shows moderate left ventricular dilatation with severe left ventricular dysfunction and ejection fraction of 20 to 25%. The hypokinesis appears global in nature. She does have mild concentric left ventricular h ypertrophy. Telemetry: Sinus rhythm in the 80s, PVCs PG Care Time/CCT Total # of Minutes Spent Total Time Spent with Patient: Total time spent is greater than 50% in coordination of care (as documented) at patient's floor/unit and/or counseling patient: Coding Level of Care Code 91537 Subseq Hosp Care Lvl 3 Diagnoses Syncope and collapse R55 Acute hypotension I95.9 Elevated troponin I level R79.89 Ischemic cardiomyopathy I25.5
--- NOTE | 2020-02-03 12:10 | Electrocardiogram Report ---
Test Reason : Blood Pressure : / mmHG Vent. Rate : 079 BPM Atrial Rate : 079 BPM P-R Int : 154 ms QRS Dur : 102 ms QT Int : 448 ms P-R-T Axes : 045 037 156 degrees QTc Int : 513 ms Normal sinus rhythm Possible Left atrial enlargement Prolonged QT Abnormal ECG No previous ECGs available Confirmed by Peter Ventura ([id number]) on 02/03/2020 12:09:59 PM Referred By: REFERRED SELF Confirmed By:Peter Ventura
--- NOTE | 2020-02-03 12:18 | Electrocardiogram Report ---
Test Reason : Blood Pressure : / mmHG Vent. Rate : 078 BPM Atrial Rate : 078 BPM P-R Int : 154 ms QRS Dur : 106 ms QT Int : 444 ms P-R-T Axes : 040 016 184 degrees QTc Int : 506 ms Normal sinus rhythm Possible Left atrial enlargement Prolonged QT Abnormal ECG When compared with ECG of 01-FEB-2020 11:53, (unconfirmed) No significant change was found Confirmed by Peter Ventura ([id number]) on 02/03/2020 12:17:55 PM Referred By: REFERRED SELF Confirmed By:Peter Ventura
== END 2020-02-02 13:12 | disposition home or self-care (01) ==
LOC: ED 11:46 → 2S 15:34 → INTOOBSV 15:34 → SUATTDRO 15:34 → 2S 17:44

== ENCOUNTER 2020-02-19 12:31 | Observation (INO) ==
--- NOTE | 2020-02-19 12:48 | Emergency Department Note ---
Impression & Plan Acute exacerbation of CHF (congestive heart failure), Acute dyspnea ED Provider Note NAME: COCO ROSE AGE: 64 SEX: F : 1955 ARRIVES VIA: Walk-In INFORMANT: Patient, ED PROVIDER(S): Armando Reynoso MD Chief Complaint: Chest tightness, shortness of breath HPI: States that her symptoms began yesterday. The patient does describe some diffuse chest tightness and feels like her chest is spasming. Patient does have associated shortness of breath and mild orthopnea. The patient states she is compliant with her medications. The patient was recently seen by Dr. Perez her primary national sales trainer with no recent changes to medications. Patient denies any change in fluids or salt in diet. The patient denies fevers chills, or cough or lower extremity swelling. Patient denies any nausea stimuli chemicals. Patient denies any history of allergy. Patient is a non-smoker no prior history of lung disease but does have a history of CAD and is on aspirin and Brilinta. Patient cardiology note does show that the patient does have an EF of 20%. Patient does wear an external LifeVest but no history of any defibrillation shocks. ROS: See HPI for pertinent positives and negatives. A total of 10 systems were reviewed and otherwise negative. Past medical history: See below Surgical history: See below Social history: See below Physical Exam: GENERAL: Uncomfortable in appearance, wearing glasses. Defibrillator vest in place. EYE EXAM: Normal conjunctiva. PERRL, no anisocoria and EOM's grossly intact w/o pain. NECK: Supple, no nuchal rigidity, no adenopathy, non-tender. No signs of meningismus. LUNGS: Diminished breath sounds bilateral bases, short shallow breathing noted. No obvious wheezing or rhonchi. HEART: Tachycardic and regular, no MRG. ABDOMEN: Abdomen soft, non-tender, normo-active bowel sounds, no masses, no rebound or guarding. BACK: No CVA TTP. SKIN: No rashes and no bruising. UPPER EXTREMITIES: Upper extremities are grossly normal. LOWER EXTREMITIES: Grossly normal, no edema. Negative Homans sign bilaterally. NEURO EXAM: A&O x3, cranial nerves II-XII grossly intact, normal speech, moves all 4 extremities on command w/o issue. Differential diagnoses: Cardiac ischemia, aortic dissection, pulmonary embolism, pneumothorax, pneumonia, pericarditis, myocarditis, esophageal rupture, GERD, cholecystitis, pancreatitis, musculoskeletal, as well as other pathologies. Course: Patient was seen and evaluated the bedside. Full history physical exam was performed. EKG: Indication: Shortness of breath Normal sinus rhythm, rate of 99, normal QRS prolonged QTC, normal axis, depressions in the lateral leads. Rate is slightly faster but otherwise morphology appears relatively unchanged from comparison EKG completed February 01, 2020. Imaging Studies: Radiology results as stated below per my review in the radiologist's interpretation: SINGLE VIEW CHEST CLINICAL HISTORY: Atypical chest pain. FINDINGS: An AP, portable, upright chest radiograph is compared to chest x-ray and chest CT dated 02/01/2020. Electronic devices project over the chest. The heart is enlarged. There is pulmonary vascular congestion with evidence of interstitial edema. Small pleural effusions are noted. No pneumothorax is seen. The skeletal structures are osteopenic. Right-sided rib fractures are again noted. Calcific tendinopathy is seen in the left shoulder. Fusion hardware is seen in the lower cervical spine. Surgical clips are noted in the lower neck. IMPRESSION: 1. Cardiomegaly with evidence of congestive failure and interstitial edema. Correlate clinically for evidence of a superimposed infectious/inflammatory pneumonitis. 2. Small pleural effusions. ACT 112: Negative or not required by law. Electronically signed by: Spenser Collier M.D. 02/19/2020 1:58 PM Dictated: 02/19/20 1356 Transcribed: 02/19/20 1356 Cardiac monitoring: An order was placed for continuous cardiac monitoring. The monitor shows a rate of 104 with sinus tachycardia rhythm. Procedures: Limited Point of Care Cardiac Ultrasound performed by Dr. Reynoso: Indication: Shortness of breath Findings: Limited echocardiography revealed no pericardial fluid. Wall motion appeared decreased. HR 106. Additional findings: Enlarged LV with increased EPSS, IVC is full but with mild respiratory variability with inspiration. Other lung becerra with congestion noted. Impression: Severely depressed EF with congested lung becerra MDM: Patient does present with concern for shortness of breath chest tightness and orthopnea. Blood work was obtained along with a [id number] ultrasound chest x-ray and the patient was ordered some IV diuretic. Of note per the chart the patient tends to have a lower blood pressure at baseline. The patient was ordered some nitro and did have BiPAP placed. Upon reassessment the patient did have mild improvement of symptoms. EKG does not appear grossly changed from prior in January. CT of the chest was ordered pending the blood work. The patient does have chronic stable anemia normal white count and platelet count. Kidney function is unremarkable. Patient's BNP is greater than 25,000 with a positive troponin which is chronic. Given the BNP that the elevation and associated interstitial edema with respiratory variability with the IVC I believe PE to be less likely. I believe CHF exacerbation possibly related to increase in fluid or even blood pressure given that she tends to run lower at baseline. Patient did have an ABG performed which does show a respiratory alkalosis with a PCO2 in the 20s with a normal pH. Patient's PaO2 is greater than 90 only on pressure support. She has tolerated BiPAP now after receiving Ativan. I did speak the on-call hospitalist Dr. Walter MD. Patient was subsequently mated to the medicine service. Critical Care: I have personally spent 77 minutes of critical care time in direct management of this patient. This includes bedside care, interpretation of diagnostic studies, and testing, discussion with consultants, patient, and family members, and other require inpatient management activities. This 77 minutes is in excess of all separately billable procedures. Past Med/Surg History Medical History CAD (coronary artery disease), [place] coronary artery Chronic systolic (congestive) heart failure Depression with anxiety DM2 (diabetes mellitus, type 2) GERD (gastroesophageal reflux disease) Hypothyroidism Insomnia Lupus ND (myocardial infarction) Osteoporosis Rheumatoid arthritis UTI (urinary tract infection) Surgical History H/O arthroscopic knee surgery H/O: hysterectomy History of open reduction and internal fixation (ORIF) procedure S/P appendectomy Family History Other Family history non-contributory Social History Smoking Status: Former smoker Age Started Using Tobacco: 17; Age Quit Using Tobacco: 64; packs per day: 0.5; Second Hand Exposure: No; Hx Alcohol Use: Yes Alcohol type: wine Hx Substance Use: No Preferred Language: [place] Communication Ability: Effective Support Services Specialist Required: No Beliefs That Will Affect Care: Confucianist marital status: Single Current Living Situation: Family Feels Safe at Home: Yes Assistive Devices: Glasses Allergies Allergies Allergy/AdvReac Type Severity Reaction Status Date / Time metoclopramide Allergy Severe Breathing Unverified 02/19/20 13:37 Trouble Home Meds Home Medications Medication Instructions Recorded Confirmed amitriptyline 10 - 20 mg PO HS 02/01/20 02/19/20 aspirin 81 mg PO DAILY 02/01/20 02/19/20 atorvastatin 40 mg PO DAILY 02/01/20 02/19/20 furosemide 20 mg PO DAILY 02/01/20 02/19/20 levothyroxine 100 mcg PO 0600 02/01/20 02/19/20 melatonin 10 mg PO HS 02/01/20 02/19/20 omeprazole 40 mg PO DAILY 02/01/20 02/19/20 oxycodone-acetaminophen [Percocet] 1 tab PO Q6H PRN 02/01/20 02/19/20 polyethylene glycol 3350 [Miralax] 17 g PO DAILY 02/01/20 02/19/20 prednisone 5 mg PO HS 02/01/20 02/19/20 sertraline [Zoloft] 50 mg PO DAILY 02/01/20 02/19/20 denosumab 60 mg/mL subcutaneous 60 mg SUBCUT .COMPLEX 02/10/20 02/19/20 syringe potassium 99 mg PO DAILY 02/19/20 02/19/20 Previous Rx's Medication Instructions Recorded ferrous sulfate [iron] 325 mg PO DAILY #30 tab 02/02/20 metoprolol succinate 25 mg 12.5 mg PO DAILY #15 tab 02/10/20 tablet,extended release 24 hr ticagrelor 90 mg tablet 90 mg PO BID #60 tab 02/10/20 Results & Data (ED) Vital Signs Vital Signs - 24 hr 02/19/20 12:32 02/19/20 12:53 02/19/20 13:00 Temperature 36.4 C L Temperature Source Oral Pulse Rate 104 H 100 H 101 H Pulse Rate from SpO2 Sensor Respiratory Rate 22 18 16 Respiratory Effort / Characteristics SOB on Exertion Respiratory Depth Normal Respiratory Pattern Regular Blood Pressure 115/81 Blood Pressure Mean 92 Pulse Oximetry 96 Oxygen Delivery Method Room Air Fraction of Inspired Oxygen Sepsis Recent Fever Within 48 Hours No Sepsis New/Unexplained Change in Mental Status No Sepsis Action Taken by Nursing No Action Required 02/19/20 13:06 02/19/20 13:15 02/19/20 13:30 Temperature Temperature Source Pulse Rate 98 H 100 H 100 H Pulse Rate from SpO2 Sensor 100 H 99 H Respiratory Rate 18 32 H 26 H Respiratory Effort / Characteristics Non-Labored Spontaneous Respiratory Depth Respiratory Pattern Regular Blood Pressure Blood Pressure Mean Pulse Oximetry 98 100 99 Oxygen Delivery Method Fraction of Inspired Oxygen 30 Sepsis Recent Fever Within 48 Hours Sepsis New/Unexplained Change in Mental Status Sepsis Action Taken by Nursing 02/19/20 13:34 02/19/20 13:41 02/19/20 13:45 Temperature Temperature Source Pulse Rate 101 H 99 H Pulse Rate from SpO2 Sensor 101 H 101 H Respiratory Rate 24 15 Respiratory Effort / Characteristics Respiratory Depth Respiratory Pattern Blood Pressure 114/82 Blood Pressure Mean 89 Pulse Oximetry 99 95 Oxygen Delivery Method BiPAP Fraction of Inspired Oxygen 30 Sepsis Recent Fever Within 48 Hours Sepsis New/Unexplained Change in Mental Status Sepsis Action Taken by Nursing 02/19/20 14:00 02/19/20 14:01 02/19/20 14:15 Temperature Temperature Source Pulse Rate 104 H Pulse Rate from SpO2 Sensor 103 H 100 H 104 H Respiratory Rate 22 Respiratory Effort / Characteristics Respiratory Depth Respiratory Pattern Blood Pressure 111/95 Blood Pressure Mean 99 Pulse Oximetry 97 94 96 Oxygen Delivery Method Fraction of Inspired Oxygen Sepsis Recent Fever Within 48 Hours Sepsis New/Unexplained Change in Mental Status Sepsis Action Taken by Nursing 02/19/20 14:30 Temperature Temperature Source Pulse Rate 102 H Pulse Rate from SpO2 Sensor 102 H Respiratory Rate 18 Respiratory Effort / Characteristics Spontaneous Respiratory Depth Respiratory Pattern Blood Pressure Blood Pressure Mean Pulse Oximetry 88 L Oxygen Delivery Method Fraction of Inspired Oxygen 24 Sepsis Recent Fever Within 48 Hours Sepsis New/Unexplained Change in Mental Status Sepsis Action Taken by [facility] Medications Current Medication List: was personally reviewed by me Laboratory Data Attestation: I reviewed the patient's lab results. Result diagrams: 02/19/20 13:30 02/19/20 13:30 Lab Results 02/19/20 02/19/20 02/19/20 Range/Units 13:30 13:30 13:30 WBC 10.32 (4.8-10.8) K/uL RBC 3.31 L (4.2-5.4) M/uL Hgb 8.8 L (12.0-16.0) g/dL Hct 28.2 L (37-47) % MCV 85.2 (80-100) fL MCH 26.6 (25-34) pg MCHC 31.2 L (32-36) g/dL RDW Std Deviation 50.9 H (36.4-46.3) fL RDW Coeff of Severino 16.4 H (11.5-14.5) % Plt Count 263 (130-400) K/uL MPV 9.9 (7.4-10.4) fL Immature Gran % (Auto) 0.2 % Neut % (Auto) 86.2 % Lymph % (Auto) 8.7 % [place] % (Auto) 4.7 % Eos % (Auto) 0.1 % Baso % (Auto) 0.1 % Neut # (Auto) 8.89 H (1.4-6.5) K/uL Lymph # (Auto) 0.90 L (1.2-3.4) K/uL [place] # (Auto) 0.49 (0.11-0.59) K/uL Eos # (Auto) 0.01 (0-0.5) K/uL Baso # (Auto) 0.01 (0-0.2) K/uL Immature Gran # (Auto) 0.02 (0.00-0.02) K/uL PT 12.0 (9.0-12.0) Seconds INR 1.1 (0.9-1.1) APTT 23.1 (21.0-31.0) Seconds PTT Ratio 0.8 Sodium 138 (136-145) mmol/L Potassium 4.3 (3.5-5.1) mmol/L Chloride 108 H (98-107) mmol/L Carbon Dioxide 23 (21-32) mmol/L Anion Gap 7.0 (3-11) BUN 19 H (7-18) mg/dl Creatinine 0.75 (0.6-1.2) mg/dl Est Cr Clr Drug Dosing 67.2 ml/min Est GFR ( Amer) 99.0 Est GFR (Non-Af Amer) 85.4 BUN/Creatinine Ratio 25.1 H (10-20) Glucose 150 H (70-99) mg/dl Calcium 9.0 (8.5-10.1) mg/dl Phosphorus 4.4 (2.5-4.9) mg/dl Magnesium 1.8 (1.8-2.4) mg/dl Total Bilirubin 0.7 (0.2-1) mg/dl AST 23 (15-37) U/L ALT 24 (12-78) U/L Alkaline Phosphatase 85 (45-117) U/L Troponin I 0.050 H* (0-0.045) ng/ml NT-Pro-B Natriuret Pep 59641 H (0-900) pg/ml Total Protein 7.1 (6.4-8.2) gm/dl Albumin 3.6 (3.4-5.0) gm/dl Globulin 3.5 (2.5-4.0) gm/dl Albumin/Globulin Ratio 1.0 (0.9-2) Lipase 51 L (73-393) U/L Administered Medications Discontinued Medications Furosemide (Furosemide 40 Mg/4 Ml Vial) 20 mg IV NOW STA Stop: 02/19/20 14:21 Last Admin: 02/19/20 14:49 Dose: 20 mg Documented by: [id number] Lorazepam (Ativan) 0.5 mg in 1 mls @ 1 mls/min IV NOW STA Stop: 02/19/20 13:53 Last Admin: 02/19/20 14:01 Dose: 1 mls/min Documented by: [id number] Ioversol (Optiray 320 125ml) 118 ml IV ONCE ONE Stop: 02/19/20 14:17 Last Admin: 02/19/20 14:16 Dose: 118 ml Documented by: [id number] Nitroglycerin (Nitroglycerin Sl 0.4 Mg/Tab Tab) 0.4 mg SL NOW STA Stop: 02/19/20 12:53 Last Admin: 02/19/20 12:55 Dose: 0.4 mg Documented by: [id number] Discharge Plan Visit Data Chief Complaint: Shortness of Breath/Dyspnea Stated Complaint: DIFFICULTY BREATHING, CHEST CONSTRICTION- CARDIAC ED Provider: Armando Reynoso Discharge Problem: Acute exacerbation of CHF (congestive heart failure), Acute dyspnea Forms Stand Alone Forms: My [facility] [employer] Prescriptions Prescriptions: No Action metoprolol succinate 25 mg tablet extended release 24 hr 12.5 mg PO DAILY Qty: 15 RF: 3 Brilinta 90 mg tablet 90 mg PO BID Qty: 60 RF: 5 atorvastatin 40 mg Tablet 40 mg PO DAILY RF: 0 prednisone 5 mg Tablet 5 mg PO HS RF: 0 omeprazole 40 mg Capsule,Delayed Release(Dr/Ec) 40 mg PO DAILY RF: 0 levothyroxine 100 mcg Tablet 100 mcg PO 0600 RF: 0 amitriptyline 10 mg Tablet 10 - 20 mg PO HS RF: 0 aspirin 81 mg Tablet,Chewable 81 mg PO DAILY RF: 0 furosemide 20 mg Tablet 20 mg PO DAILY RF: 0 polyethylene glycol 3350 [Miralax] 17 gram/dose Powder 17 g PO DAILY RF: 0 oxycodone-acetaminophen [Percocet] 7.5-325 mg Tablet 1 tab PO Q6H PRN (Reason: Moderate Pain (Scale Score 5-6)) RF: 0 sertraline [Zoloft] 50 mg Tablet 50 mg PO DAILY RF: 0 melatonin 10 mg Tablet 10 mg PO HS RF: 0 ferrous sulfate [iron] 325 mg (65 mg iron) tablet 325 mg PO DAILY Qty: 30 RF: 0 Prolia 60 mg/mL syringe 60 mg SUBCUT .COMPLEX RF: 0 potassium 99 mg Tablet 99 mg PO DAILY RF: 0
[2020-02-19] MEDS ORDERED: NITROGLYCERIN SL 0.4 MG/TAB TAB SL STA (12:52)
[2020-02-19 13:43] LABS: Basophils # (auto) 0.01 K/uL (0-0.2); Basophils % (auto) 0.1 %; Eosinophils # (auto) 0.01 K/uL (0-0.5); Eosinophils % (auto) 0.1 %; Hematocrit (blood only) 28.2 % (37-47); Hemoglobin 8.8 g/dL (12.0-16.0); Immature Granulocytes # (auto) 0.02 K/uL (0.00-0.02); Immature Granulocytes % (auto) 0.2 %; Lymphocytes % (auto) 8.7 %; Mean Corpuscular Hemoglobin 26.6 pg (25-34); Mean Corpuscular Hgb Conc 31.2 g/dL (32-36); Mean Corpuscular Volume 85.2 fL (80-100); Mean Platelet Volume 9.9 fL (7.4-10.4); Monocytes # (auto) 0.49 K/uL (0.11-0.59); Monocytes % (auto) 4.7 %; Neutrophils # (auto) 8.89 K/uL (1.4-6.5); Neutrophils % (auto) 86.2 %; Platelet Count 263 K/uL (130-400); RDW Coefficient of Variation 16.4 % (11.5-14.5); RDW Standard Deviation 50.9 fL (36.4-46.3); Red Blood Count 3.31 M/uL (4.2-5.4); White Blood Count 10.32 K/uL (4.8-10.8)
[2020-02-19] MEDS ORDERED: LORazepam 0.5 MG/1 ML VIAL IV STA (13:52)
[2020-02-19 13:55] LABS: INR 1.1 (0.9-1.1); Partial Thromboplastin Ratio 0.8; Partial Thromboplastin Time 23.1 Seconds (21.0-31.0)
--- NOTE | 2020-02-19 13:59 | XRay Report ---
SINGLE VIEW CHEST CLINICAL HISTORY: Atypical chest pain. FINDINGS: An AP, portable, upright chest radiograph is compared to chest x-ray and chest CT dated 01/10. Electronic devices project over the chest. The heart is enlarged. There is pulmonary vascular congestion with evidence of interstitial edema. Small pleural effusions are noted. No pneumothorax i s seen. The skeletal structures are osteopenic. Right-sided rib fractures are again noted. Calcific t endinopathy is seen in the left shoulder. Fusion hardware is seen in the lower cervical spine. Surgic al clips are noted in the lower neck. IMPRESSION: 1. Cardiomegaly with evidence of congestive failure and interstitial edema. Correlate clinically for evidence of a superimposed infectious/inflammatory pneumonitis. 2. Small pleural effusions. ACT 112: Negative or not required by law. Electronically signed by: Spenser Collier M.D. 02/19/2020 1:58 PM
[2020-02-19 14:02] LABS: Albumin Level 3.6 gm/dl (3.4-5.0); BUN Creatinine Ratio 25.1 (10-20); Creatinine Clr Calc Pharmacy 67.2 ml/min; Est GFR (Non-African American) 85.4; Magnesium 1.8 mg/dl (1.8-2.4); Potassium 4.3 mmol/L (3.5-5.1)
[2020-02-19 14:10] LABS: Bilirubin,Total 0.7 mg/dl (0.2-1); Globulin 3.5 gm/dl (2.5-4.0); Phosphorus 4.4 mg/dl (2.5-4.9); Total Protein 7.1 gm/dl (6.4-8.2); Troponin I 0.05 ng/ml (0-0.045)
[2020-02-19] MEDS ORDERED: OPTIRAY 320 125ml IV ONE (14:16)
[2020-02-19] MEDS ORDERED: FUROSEMIDE 40 MG/4 ML VIAL IV STA ×2 (14:20→17:09)
--- NOTE | 2020-02-19 15:06 | History & Physical Report ---
Date of Service February 19, 2020 Assessment & Plan (1) Acute on chronic systolic (congestive) heart failure: CXR and BNP on admission point toward acute systolic CHF exacerbation. - BiPap and/or O2 as needed, though ABG in ED points toward no hypercapnea - Lasix 40 mg IV x 1 given in the ED; continue 40 mg IV daily - I&Os, daily weights - Continue beta-sneha - Cardiology consulted given poor EF (2) Ischemic cardiomyopathy: Known CAD with 3 SOLEDAD placed ~12/2019 in [place]. No present chest pain. Troponin stable from priors (even after >12 hours of symptoms). EKG with no acute ischemic changes. - Continue ASA/ticagrelor, beta-sneha, statin - As above (3) Lupus: Long-standing lupus and RA. - Continue prednisone 10 mg PO HS - No need for stress-dose steroids unless changes in BP. Presently BP is at baseline ~110/70. (4) Depression with anxiety: No overt symptoms on admission. - Continue home SSRI - Hold amitriptyline for altered mental status, but can restart one respiratory status improved (5) DM2 (diabetes mellitus, type 2): A1c was 6.0% in 01/2020 on no medications. Unclear if this reflects prior diagnosis or - Monitor (6) Hypothyroidism: TSH was 2.9 in 01/2020. No signs/symptoms of hypo-/hyperthyroidism. - Continue home Synthroid 100 mcg (7) DVT prophylaxis: SCDs - Low DVT risk per admission calculator & also on DAPT for CAD History of Present Illness Primary Care Provider: NO PCP 64yo F w/ hx of systolic heart failure and ischemic cardiomyopathy who presents with signs/symptoms of systolic CHF exacerbation. The patient was in the hospital until 02/02/2020 for fainting spells that may have been related to adrenal insufficiency from stopping long-term Lasix. At that time, she was followed by cardiology and noted to have ischemic cardiomyopathy with an EF 20- 25%. On discharge, her weight was 110 lbs. Since discharge, she has been gaining about 2 lbs per week and is now up to 116 lbs on her home scale per her daughter. Her daughter reports this is good because they felt she was too skinny and they have been trying to have her build up weight. On , she noted she had some shortness of breath, though her daughter relates that she really only started to complain about it/report it last night. The patient feels this is a "constriction" in her chest. She denies any chest pain, palpitations, abdominal pain, nausea, or other symptoms. Daughter reports that she is anxious and restless at present with some occasional confusion. Allergies Allergy/AdvReac Type Severity Reaction Status Date / Time metoclopramide Allergy Severe Breathing Unverified 02/19/20 13:37 Trouble Home Medications Home Medications Medication Instructions Recorded Confirmed Type amitriptyline 10 - 20 mg PO HS 02/01/20 02/19/20 History aspirin 81 mg PO DAILY 02/01/20 02/19/20 History atorvastatin 40 mg PO DAILY 02/01/20 02/19/20 History furosemide 20 mg PO DAILY 02/01/20 02/19/20 History levothyroxine 100 mcg PO 0600 02/01/20 02/19/20 History melatonin 10 mg PO HS 02/01/20 02/19/20 History omeprazole 40 mg PO DAILY 02/01/20 02/19/20 History oxycodone-acetaminophen [Percocet] 1 tab PO Q6H PRN 02/01/20 02/19/20 History polyethylene glycol 3350 [Miralax] 17 g PO DAILY 02/01/20 02/19/20 History prednisone 5 mg PO HS 02/01/20 02/19/20 History sertraline [Zoloft] 50 mg PO DAILY 02/01/20 02/19/20 History ferrous sulfate [iron] 325 mg PO DAILY #30 tab 02/02/20 02/19/20 Rx denosumab 60 mg/mL subcutaneous 60 mg SUBCUT .COMPLEX 02/10/20 02/19/20 History syringe metoprolol succinate 25 mg 12.5 mg PO DAILY #15 tab 02/10/20 02/19/20 Rx tablet,extended release 24 hr ticagrelor 90 mg tablet 90 mg PO BID #60 tab 02/10/20 02/19/20 Rx potassium 99 mg PO DAILY 02/19/20 02/19/20 History Past Med/Surg History Medical History CAD (coronary artery disease), [place] coronary artery Chronic systolic (congestive) heart failure Depression with anxiety DM2 (diabetes mellitus, type 2) GERD (gastroesophageal reflux disease) Hypothyroidism Insomnia Lupus MD (myocardial infarction) Osteoporosis Rheumatoid arthritis UTI (urinary tract infection) Surgical History H/O arthroscopic knee surgery H/O: hysterectomy History of open reduction and internal fixation (ORIF) procedure S/P appendectomy Family History Other Family history non-contributory Social History Smoking Status: Former smoker Age Started Using Tobacco: 17; Age Quit Using Tobacco: 64; packs per day: 0.5; Second Hand Exposure: No; Hx Alcohol Use: Yes Alcohol type: wine Hx Substance Use: No Preferred Language: Malay Communication Ability: Effective Education Program Associate Required: No Beliefs That Will Affect Care: Gnosticist marital status: Single Current Living Situation: Family Feels Safe at Home: Yes Assistive Devices: Glasses Review of Systems Review of Systems: All systems reviewed & are unremarkable except as noted in HPI & below Physical Exam Constitutional: WD/WN, vitals as above + acute distress Eyes: EOM intact bilaterally; no conjunctival abnormality ENMT: external ear and nose normal, oropharynx normal Neck: trachea midline, no thyromegaly normal visual inspection Respiratory: + respiratory distress, + labored breathing and + tachypneic Auscultation: + crackles; no wheezes Cardiovascular: Rate/Rhythm: regular rhythm and + tachycardic Heart Sounds: normal S1 and normal S2 Vessels: no JVD Extremities: no edema Gastrointestinal (Abdomen): Inspection/Auscultation: abdomen normal to inspection; abdomen not distended Musculoskeletal: no cyanosis or clubbing, extremities motor strength 5/5 Skin: no rashes, warm and dry Neurologic: moves all extremities and awake Psychiatric: Orientation: alert, oriented to person and cooperative Affect: + anxious affect Results & Data Results & Data ([facility]) Vital Signs (Past 12 Hours) Vital Signs Temp Pulse Resp BP Pulse Ox 02/19/20 14:30 102 H 18 88 L 02/19/20 14:15 104 H 22 96 02/19/20 14:01 94 02/19/20 14:00 111/95 97 02/19/20 13:45 99 H 15 95 10/11/20 13:41 101 H 24 114/82 99 02/19/20 13:30 100 H 26 H 99 02/19/20 13:15 100 H 32 H 100 02/19/20 13:06 98 H 18 98 02/19/20 13:00 101 H 16 02/19/20 12:53 100 H 18 02/19/20 12:32 36.4 C L 104 H 22 115/81 96 PG Care Time/CCT Total # of Minutes Spent Total Time Spent with Patient: Total time spent is greater than 50% in coordination of care (as documented) at patient's floor/unit and/or counseling patient: Coding Level of Care Code 73029 OBS Care - Level 3 Diagnoses Acute on chronic systolic (congestive) heart failure I50.23 Ischemic cardiomyopathy I25.5 Lupus M32.9 Depression with anxiety F41.8 DM2 (diabetes mellitus, type 2) E11.9 Hypothyroidism E03.9 DVT prophylaxis Z29.9
[2020-02-19] MEDS ORDERED: ACETAMINOPHEN 325 MG TAB PO PRN (17:09)
[2020-02-19] MEDS ORDERED: ONDANSETRON INJ 2 MG/ML 2 ML VIAL IV PRN (17:09)
[2020-02-19] MEDS ORDERED: FUROSEMIDE 20 MG in SYRINGE 0 ML IV ONE (17:15)
[2020-02-19] MEDS ORDERED: PNEUMOCOCCAL ADMINISTRATION CHARGE ONE (18:15)
[2020-02-19] MEDS ORDERED: PNEUMOCOCCAL POLYSACCHARIDES 25 MCG/0.5 ML VIAL/SYR IM ONE (18:15)
[2020-02-19] MEDS: predniSONE 10 MG TABLET PO SCH (19:42)
[2020-02-19] MEDS: TICAGRELOR 90 MG TAB PO SCH (19:42)
[2020-02-19] MEDS: MELATONIN 3 MG TAB PO SCH (20:15)
[2020-02-19] MEDS: AMITRIPTYLINE HCL 10 MG TAB PO SCH (20:15)
[2020-02-20] MEDS: LEVOTHYROXINE SODIUM 100 MCG TABLET PO SCH (05:57)
[2020-02-20 07:57] LABS: Hematocrit (blood only) 29.2 % (37-47); Hemoglobin 9.3 g/dL (12.0-16.0); Mean Corpuscular Hemoglobin 26.6 pg (25-34); Mean Corpuscular Hgb Conc 31.8 g/dL (32-36); Mean Corpuscular Volume 83.7 fL (80-100); Mean Platelet Volume 10.5 fL (7.4-10.4); Platelet Count 289 K/uL (130-400); RDW Coefficient of Variation 16.7 % (11.5-14.5); RDW Standard Deviation 50.8 fL (36.4-46.3); Red Blood Count 3.49 M/uL (4.2-5.4); White Blood Count 11.44 K/uL (4.8-10.8)
[2020-02-20 08:24] LABS: BUN Creatinine Ratio 25.9 (10-20); Calcium 9.4 mg/dl (8.5-10.1); Creatinine Clr Calc Pharmacy 73.5 ml/min; Est GFR (African American) 108.7; Est GFR (Non-African American) 93.7; Magnesium 1.8 mg/dl (1.8-2.4); Potassium 2.9 mmol/L (3.5-5.1)
[2020-02-20] MEDS ORDERED: METOPROLOL SUCC 25MG EXT REL TAB PO SCH (09:00)
[2020-02-20] MEDS ORDERED: FUROSEMIDE 40 MG/4 ML VIAL IV SCH (09:00)
--- NOTE | 2020-02-20 09:50 | Cardiology Consultation ---
Date of Consultation February 20, 2020 Assessment & Plan (1) Acute on chronic systolic (congestive) heart failure: Mrs. Loya is a 64-year-old female with a history of Lupus, Rheumatoid Arthritis (on Prednisone chronically), Anemia, GERD, Osteoporosis, Depression, Anxiety, Hypothyroidism, Type 2 Diabetes Mellitus, CAD s/p 3 Drug Eluting Stents December 2019, Chronic Systolic CHF, and an Ischemic Cardiomyopathy (LVEF 20% to 25%) -- who was admitted to [facility] 02/19/2020 with an Acute Exacerbation of Chronic Systolic CHF. The patient was hospitalized from 02/01/2020 to 02/02/2020 for Syncope due to Hypotension secondary to Adrenal Insufficiency (her long-term Prednisone was suddenly stopped). At that time, her Lisinopril and Metoprolol were discontinued and her Lasix was reduced due to persistent hypotension. She also received stress dose steroids during that hospitalization. Following discharge and as her BP came back up to baseline -- patient was able to be restarted on Toprol XL 12.5 mg daily. Patient's weight was 110 lbs on 02/02/2020. After being discharged -- she was gaining about 2 lbs per week and her body weight gradually climbed up to 116 lbs (according to her home scales) when she came into the ER on 02/19/2020. On 02/16/2020, patient developed some shortness of breath, but she did not mention it to her daughter until the evening of 02/18/2020. The patient felt a "constriction" in her chest -- like she could not take enough of a breath. She denies any associated nausea, vomiting, or diaphoresis. Patient specifically denies any angina pectoris. She denies any shocks from her LifeVest Patient had a markedly elevated Pro-BNP at > 25,000 pg/ml, and CXR showed cardiomegaly and pulmonary edema. I&O's have not yet been documented on the chart but after receiving IV Lasix the patient is feeling significantly less short of breath but please note that she is quite Hypokalemic today. Patient is in a sinus rhythm but her HR has been consistently in the 90 to low 100's -- even overnight and while sleeping. Patient will benefit by correcting her hypokalemia and her cardiomyopathy/CAD will also benefit by having a slower HR. Recommend the following: -- Increase Toprol XL to 25 mg. -- Correct Hypokalemia. -- This afternoon, begin Digoxin 125 mcg daily for negative chronotropic and positive inotropic proprerties. -- Continue IV Lasix. -- Daily body weights, I&O's. -- 2 gram low sodium diet. (2) CAD (coronary artery disease), [place] coronary artery: -- Increase Toprol XL to 25 mg daily. -- Continue Aspirin 81 mg daily. -- Continue Brilinta 90 mg b.i.d.. -- Continue Atorvastatin 40 mg daily. (3) Ischemic cardiomyopathy: -- Continue Toprol XL 25 mg daily. -- Start Digoxin 125 mcg daily later today. -- Continue oral Lasix at discharge. -- Prescribe KCL 10 to 20 mEq daily at discharge. -- At hospital follow-up with cardiology would recommend starting Entresto if BP allows. -- Continue with LifeVest for prescribed course. (4) Hypokalemia: -- KCL 40 mEq p.o. now x 1 dose. -- Begin KCL 20 mEq tomorrow morning. -- Monitor daily BMP. History of Present Illness Reason for Consultation: -- Acute on Chronic Systolic CHF. -- Ischemic Cardiomyopathy - LVEF 20% to 25%. -- CAD s/p Drug Eluting Stents x 3 in December 2019. Requesting Physician: Ander Pineda Attending Physician: Ricardo Mena MD History of Present Illness Mrs. Loya is a 64-year-old female with a history of Lupus, Rheumatoid Arthritis (on Prednisone chronically), Anemia, GERD, Osteoporosis, Depression, Anxiety, Hypothyroidism, Type 2 Diabetes Mellitus, CAD s/p 3 Drug Eluting Stents December 2019, Chronic Systolic CHF, and an Ischemic Cardiomyopathy (LVEF 20% to 25%) who was admitted to [facility] yesterday after presenting with progressive SOB x 3 days. The patient was previously in our hospital from 02/01/2020 to 02/02/2020 for fainting spells / hypotension that were most likely secondary to adrenal insuf ficiency from stopping long-term Prednisone. At that time, her Lisinopril and Metoprolol were discontinued and her Lasix was reduced due to her persistent hypotension. She also received stress dose steroids during that hospitalization. She was followed by Dr. Ventura during that hospitalization, and he also met with her following discharge. As her BP came back up to baseline -- patient was able to be restarted on Toprol XL 12.5 mg daily. At the time of her discharge 02/02/2020 -- her weight was 110 lbs. Following discharge, she was gaining about 2 lbs per week and her body weight was up to 116 lbs on her home scales when she presented to our ER on 02/19/2020. On 02/16/2020, patient developed some shortness of breath, but she did not mention it to her daughter until the evening of 02/18/2020. The patient felt a "constriction" in her chest -- like she could not take enough of a breath. She denies any associated nausea, vomiting, or diaphoresis. Patient further denies any angina or chest discomfort. She denies any exertional chest, neck, jaw, back, or arm discomfort. She denies any palpitations, near syncope, or any further syncopal episodes. Patient is compliant with a low sodium diet. In the ER patient was noted to have a markedly elevated Pro-BNP at > 25,000 pg/ml, and CXR showed cardiomegaly and pulmonary edema. I&O's have not yet been documented on the chart -- but after receiving IV Lasix the patient is feeling significantly less short of breath but she quite Hypokalemic today. Patient is in a sinus rhythm but her HR has been consistently in the 90 to low 100's -- even overnight and while sleeping. HISTORICAL BACKGROUND: Patient's cardiac history dates back to December 2019 when she was found unresponsive outside of her residence in [place], was taken to the ER in [place] and ended up in the ICU on a ventilator. We do not know exactly what occurred during that hospitalization -- but she was diagnosed with an ischemic cardiomyopathy. She underwent a Cardiac Catheterization with deployment of stents (unknown details) in [place] and ultimately was discharged with a LifeVest. Her daughter then brought her back to [place] in mid January 2020. She was seen by her Public Administration Teacher in [place] just before they left and patient was doing well. Patient was feeling relatively well until she took a shower on February 01, 2020 and had a syncopal event in the shower. She was not wearing the LifeVest because of being in the shower. Her daughter helped her in the shower, she did not try to have her sit up but called 911. Apparently while the EMT's were there -- she had several more unresponsive or partially unresponsive spells but it is not known if an arrhythmia was documented. She did not have these syncopal spells before that and she denied any LifeVest shocks while she was wearing it. Patient had an Echocardiogram 01/13/2020 showing an LVEF of 20% with a moderately enlarged left ventricular cavity and multiple regional wall motion abnormalities. Allergies Allergy/AdvReac Type Severity Reaction Status Date / Time metoclopramide Allergy Severe Breathing Unverified 02/19/20 13:37 Trouble Home Medications Home Medications Medication Instructions Recorded Confirmed Type amitriptyline 10 - 20 mg PO HS 02/01/20 02/19/20 History aspirin 81 mg PO DAILY 02/01/20 02/19/20 History atorvastatin 40 mg PO DAILY 02/01/20 02/19/20 History furosemide 20 mg PO DAILY 02/01/20 02/19/20 History levothyroxine 100 mcg PO 0600 02/01/20 02/19/20 History melatonin 10 mg PO HS 02/01/20 02/19/20 History omeprazole 40 mg PO DAILY 02/01/20 02/19/20 History oxycodone-acetaminophen [Percocet] 1 tab PO Q6H PRN 02/01/20 02/19/20 History polyethylene glycol 3350 [Miralax] 17 g PO DAILY 02/01/20 02/19/20 History prednisone 10 mg PO HS 02/01/20 02/19/20 History sertraline [Zoloft] 50 mg PO DAILY 02/01/20 02/19/20 History ferrous sulfate [iron] 325 mg PO DAILY #30 tab 02/02/20 02/19/20 Rx denosumab 60 mg/mL subcutaneous 60 mg SUBCUT .COMPLEX 02/10/20 02/19/20 History syringe metoprolol succinate 25 mg 12.5 mg PO DAILY #15 tab 02/10/20 02/19/20 Rx tablet,extended release 24 hr ticagrelor 90 mg tablet 90 mg PO BID #60 tab 02/10/20 02/19/20 Rx potassium 99 mg PO DAILY 02/19/20 02/19/20 History Patient History Medical History CAD (coronary artery disease), [place] coronary artery Chronic systolic (congestive) heart failure Depression with anxiety DM2 (diabetes mellitus, type 2) GERD (gastroesophageal reflux disease) Hypothyroidism Insomnia Lupus AK (myocardial infarction) Osteoporosis Rheumatoid arthritis UTI (urinary tract infection) Surgical History H/O arthroscopic knee surgery H/O: hysterectomy History of open reduction and internal fixation (ORIF) procedure S/P appendectomy Family History Other Family history non-contributory Social History Smoking Status: Former smoker Age Started Using Tobacco: 17; Age Quit Using Tobacco: 64; packs per day: 0.5; Smoking End Date: two months ago; Second Hand Exposure: No; Do You Dip or Chew Tobacco: No; Tobacco Cessation Education Requested by Patient: No Hx Alcohol Use: Yes Alcohol type: wine Hx Substance Use: No Preferred Language: Portuguese Communication Ability: Effective Hand Woodworking Sander Required: No Beliefs That Will Affect Care: None marital status: Single Current Living Situation: Family Other Information That Helps Us Care for You: No Feels Safe at Home: Yes Safety Concerns: Feels Safe At This Time Assistive Devices: Denture - Upper, Denture - Lower, Glasses and Oxygen - Continuous Assistive Devices Comment: life vest Physical Exam Physical Exam: GENERAL: Patient lying comfortably in bed, sleeping when I entered the room. HEENT: Head is atraumatic, normocephalic. EOM's intact. Facies symmetric. No perioral cyanosis. NECK: JVP is elevated, just above the level of the clavicle. Carotid upstrokes are + 2 bilaterally without bruits. CHEST/LUNGS: Diminished breath sounds in bilateral basis, some crackles at bases. CVS: S1 and S2 are regular at 100 bpm without obvious murmurs, gallops, or rubs. PMI is laterally displaced. No lifts, heaves, or thrills. No abdominal aortic or renal bruits. ABDOMINAL EXAM: Bowel sounds are present. No masses, organomegaly, or tenderness. EXTREMITIES: No clubbing or cyanosis. No edema. Intact posterior tibial and radial pulses bilaterally. NEUROLOGIC EXAM: Patient is awake, alert, and oriented. Pleasant and cooperative. Answers questions appropriately. Speech is clear. Normal movement in all 4 extremities. TELEMETRY: -- Sinus rhythm with resting HR's of 90 to 110 bpm -- even overnight while sleeping. Results & Data ([facility]) Vital Signs (Past 12 Hours) Vital Signs Temp Pulse Resp BP BP Pulse Ox 02/20/20 07:07 37.1 C 107 H 19 127/90 98 02/20/20 04:12 37.0 C 105 H 19 118/82 99 02/19/20 22:52 37.0 C 108 H 19 101/68 96 Laboratory Results Laboratory Results - last 24 hr 02/19/20 02/19/20 02/19/20 13:30 13:30 13:30 WBC 10.32 RBC 3.31 L Hgb 8.8 L Hct 28.2 L MCV 85.2 MCH 26.6 MCHC 31.2 L RDW Std Deviation 50.9 H RDW Coeff of Severino 16.4 H Plt Count 263 MPV 9.9 Immature Gran % (Auto) 0.2 Neut % (Auto) 86.2 Lymph % (Auto) 8.7 [place] % (Auto) 4.7 Eos % (Auto) 0.1 Baso % (Auto) 0.1 Neut # (Auto) 8.89 H Lymph # (Auto) 0.90 L [place] # (Auto) 0.49 Eos # (Auto) 0.01 Baso # (Auto) 0.01 Immature Gran # (Auto) 0.02 PT 12.0 INR 1.1 APTT 23.1 PTT Ratio 0.8 Sodium 138 Potassium 4.3 Chloride 108 H Carbon Dioxide 23 Anion Gap 7.0 BUN 19 H Creatinine 0.75 Est Cr Clr Drug Dosing 67.2 Est GFR ( Amer) 99.0 Est GFR (Non-Af Amer) 85.4 BUN/Creatinine Ratio 25.1 H Glucose 150 H Calcium 9.0 Phosphorus 4.4 Magnesium 1.8 Total Bilirubin 0.7 AST 23 ALT 24 Alkaline Phosphatase 85 Troponin I 0.050 H* NT-Pro-B Natriuret Pep 01959 H Total Protein 7.1 Albumin 3.6 Globulin 3.5 Albumin/Globulin Ratio 1.0 Lipase 51 L COVID-19 Eval Order COVID-19 PCR 02/19/20 02/19/2002/19/20 15:09 15:09 07:26 WBC 11.44 H RBC 3.49 L Hgb 9.3 L Hct 29.2 L MCV 83.7 MCH 26.6 MCHC 31.8 L RDW Std Deviation 50.8 H RDW Coeff of [place] 16.7 H Plt Count 289 MPV 10.5 H Immature Gran % (Auto) Neut % (Auto) Lymph % (Auto) [place] % (Auto) Eos % (Auto) Baso % (Auto) Neut # (Auto) Lymph # (Auto) [place] # (Auto) Eos # (Auto) Baso # (Auto) Immature Gran # (Auto) PT INR APTT PTT Ratio Sodium Potassium Chloride Carbon Dioxide Anion Gap BUN Creatinine Est Cr Clr Drug Dosing Est GFR ( Amer) Est GFR (Non-Af Amer) BUN/Creatinine Ratio Glucose Calcium Phosphorus Magnesium Total Bilirubin AST ALT Alkaline Phosphatase Troponin I NT-Pro-B Natriuret Pep Total Protein Albumin Globulin Albumin/Globulin Ratio Lipase COVID-19 Eval Order Covid19 Done at [facility] COVID-19 PCR NEGATIVE 02/20/20 07:26 WBC RBC Hgb Hct MCV MCH MCHC RDW Std Deviation RDW Coeff of [place] Plt Count MPV Immature Gran % (Auto) Neut % (Auto) Lymph % (Auto) [place] % (Auto) Eos % (Auto) Baso % (Auto) Neut # (Auto) Lymph # (Auto) [place] # (Auto) Eos # (Auto) Baso # (Auto) Immature Gran # (Auto) PT INR APTT PTT Ratio Sodium 136 Potassium 2.9 L D Chloride 104 Carbon Dioxide 22 Anion Gap 10.0 BUN 18 Creatinine 0.68 Est Cr Clr Drug Dosing 73.5 Est GFR ( Amer) 108.7 Est GFR (Non-Af Amer) 93.7 BUN/Creatinine Ratio 25.9 H Glucose 135 H Calcium 9.4 Phosphorus Magnesium 1.8 Total Bilirubin AST ALT Alkaline Phosphatase Troponin I NT-Pro-B Natriuret Pep Total Protein Albumin Globulin Albumin/Globulin Ratio Lipase COVID-19 Eval Order COVID-19 PCR Medications Administered Active Medications Generic Name Dose Route Start Last Admin Trade Name Freq PRN Reason Stop Dose Admin Acetaminophen 650 mg 02/19/20 17:09 Acetaminophen 325 Mg Tab PO 03/20/20 17:08 Q4H PRN pain/fever Amitriptyline HCl 10 mg 02/19/20 21:00 02/19/20 20:15 Amitriptyline Hcl 10 Mg Tab PO 03/20/20 20:59 10 mg HS MARY Administration Aspirin 81 mg 02/20/20 09:00 02/20/20 10:04 Aspirin 81 Mg Ectab PO 03/21/20 08:59 81 mg DAILY MARY Administration Atorvastatin Calcium 40 mg 02/20/20 09:00 02/20/20 10:04 Atorvastatin 40 Mg Tab PO 03/21/20 08:59 40 mg DAILY MARY Administration Digoxin 0.125 mg 02/20/20 16:00 Digoxin 0.125 Mg Tab PO 03/21/20 15:59 DAILY@1600 MARY Furosemide 40 mg/ Syringe 4 mls @ 4 mls/min 02/20/20 09:00 02/20/20 10:04 IV 03/21/20 08:59 4 mls/min DAILY MARY Administration Influenza Virus Vaccine Quadrival 0.5 ml 02/25/20 09:00 Influenza Virus Quad Vaccine 0.5 Ml Syr IM 02/25/20 09:01 .ONCE ONE Levothyroxine Sodium 100 mcg 02/20/20 06:30 02/20/20 05:57 Levothyroxine Sodium 100 Mcg Tablet PO 03/21/20 06:29 100 mcg DAILYBB MARY Administration Melatonin 9 mg 02/19/20 21:00 02/19/20 20:15 Melatonin 3 Mg Tab PO 03/20/20 20:59 9 mg HS MARY Administration Metoprolol Succinate 25 mg 02/20/20 11:15 Metoprolol Succ 25mg Ext Rel Tab PO 03/21/20 11:14 DAILY MARY Ondansetron HCl 4 mg 02/19/20 17:09 Ondansetron Inj 2 Mg/Ml 2 Ml Vial IV 03/20/20 17:08 Q4H PRN Nausea Pantoprazole Sodium 40 mg 02/20/20 09:00 02/20/20 10:04 Pantoprazole 40 Mg Tab PO 03/21/20 08:59 40 mg DAILY MARY Administration Polyethylene Glycol 17 gm 02/20/20 09:00 02/20/20 10:04 Polyethylene (Miralax) 17 Gm Pack PO 03/21/20 08:59 17 gm DAILY MARY Administration Potassium Chloride 20 meq 02/21/20 09:00 Potassium Chloride 20 Meq Tabcr PO 03/22/20 08:59 QAM MARY Prednisone 10 mg 02/19/20 21:00 02/19/20 19:42 Prednisone 10 Mg Tablet PO 03/20/20 20:59 10 mg HS MARY Administration Sertraline HCl 50 mg 02/20/20 09:00 02/20/20 10:04 Sertraline Hcl 50 Mg Tablet PO 03/21/20 08:59 50 mg DAILY MARY Administration Ticagrelor 90 mg 02/19/20 21:00 02/20/20 10:04 Ticagrelor 90 Mg Tab PO 03/20/20 20:59 90 mg BID MARY Administration PG Care Time/CCT Total # of Minutes Spent Total Time Spent with Patient: Total time spent is greater than 50% in coordination of care (as documented) at patient's floor/unit and/or counseling patient: Coding Level of Care Code 52200 Inpt Consult Level 4 Diagnoses Acute on chronic systolic (congestive) heart failure I50.23 CAD (coronary artery disease), [place] coronary artery I25.10 Ischemic cardiomyopathy I25.5 Hypokalemia E87.6
[2020-02-20] MEDS: FUROSEMIDE 40 MG in SYRINGE 0 ML IV SCH (10:04)
[2020-02-20] MEDS: ATORVASTATIN 40 MG TAB PO SCH (10:04)
[2020-02-20] MEDS: ASPIRIN 81 MG ECTAB PO SCH (10:04)
[2020-02-20] MEDS: PANTOprazole 40 MG TAB PO SCH (10:04)
[2020-02-20] MEDS: TICAGRELOR 90 MG TAB PO SCH ×2 (10:04→20:42)
[2020-02-20] MEDS: SERTRALINE HCL 50 MG TABLET PO SCH (10:04)
[2020-02-20] MEDS: POLYETHYLENE (MIRALAX) 17 GM PACK PO SCH (10:04)
[2020-02-20] MEDS ORDERED: POTASSIUM CHLORIDE 20 MEQ TABCR PO STA ×2 (11:07→14:34)
[2020-02-20 13:36] LABS: iSTAT Arterial Blood Gas pCO2 28 mmHg (35-46); iSTAT Arterial Blood Gas pH 7.44 (7.35-7.45); iSTAT Arterial Blood Gas pO2 90 mmHg (80-95); iSTAT Carbon Dioxide 19 mmol/L (24-31)
[2020-02-20 13:37] LABS: iSTAT Arterial Blood Gas HCO3 19 meg/L (19-24)
[2020-02-20] MEDS: METOPROLOL SUCC 25MG EXT REL TAB PO SCH (13:52)
[2020-02-20] MEDS ORDERED: METOPROLOL SUCC 25MG EXT REL TAB PO ONE (14:30)
--- NOTE | 2020-02-20 15:43 | Electrocardiogram Report ---
Test Reason : Blood Pressure : / mmHG Vent. Rate : 099 BPM Atrial Rate : 099 BPM P-R Int : 152 ms QRS Dur : 100 ms QT Int : 372 ms P-R-T Axes : 045 049 165 degrees QTc Int : 477 ms Normal sinus rhythm Possible Left atrial enlargement Prolonged QT Abnormal ECG When compared with ECG of 01-FEB-2020 15:31, No significant change was found Confirmed by Ricardo Mena ([id number]) on 02/20/2020 3:43:40 PM Referred By: REFERRED SELF Confirmed By:Ricardo Mena
[2020-02-20] MEDS ORDERED: DIGOXIN 0.125 MG TAB PO SCH (16:00)
[2020-02-20] MEDS: AMITRIPTYLINE HCL 10 MG TAB PO SCH (20:42)
[2020-02-20] MEDS: predniSONE 10 MG TABLET PO SCH (20:42)
[2020-02-20] MEDS ORDERED: OXYCODONE/APAP 7.5/325MG TAB PO PRN (20:45)
[2020-02-20] MEDS: MELATONIN 3 MG TAB PO SCH (21:31)
--- NOTE | 2020-02-20 21:41 | Hospitalist Progress Note ---
Date of Service February 20, 2020 Assessment & Plan (1) Acute on chronic systolic (congestive) heart failure: CXR and BNP on admission point toward acute systolic CHF exacerbation. - BiPap and/or O2 as needed, though ABG in ED points toward no hypercapnea - Lasix 40 mg IV x 1 given in the ED; continue 40 mg IV daily -- Increase Toprol XL to 25 mg. Appreciate input from cardio: -- Correct Hypokalemia. -- This afternoon, begin Digoxin 125 mcg daily for negative chronotropic and positive inotropic proprerties. -- Continue IV Lasix. -- Daily body weights, I&O's. -- 2 gram low sodium diet. (2) Ischemic cardiomyopathy: Known CAD with 3 SOLEDAD placed ~12/2019 in [place]. No present chest pain. Troponin stable from priors (even after >12 hours of symptoms). EKG with no acute ischemic changes. - Continue ASA/ticagrelor, beta-sneha, statin - As above (3) Lupus: Long-standing lupus and RA. - Continue prednisone 10 mg PO HS - No need for stress-dose steroids unless changes in BP. Presently BP is at b aseline ~110/70. (4) Depression with anxiety: No overt symptoms on admission. - Continue home SSRI - Hold amitriptyline for altered mental status, but can restart one respiratory status improved (5) DM2 (diabetes mellitus, type 2): A1c was 6.0% in 01/2020 on no medications. Unclear if this reflects prior diagnosis or - Monitor (6) Hypothyroidism: TSH was 2.9 in 01/2020. No signs/symptoms of hypo-/hyperthyroidism. - Continue home Synthroid 100 mcg (7) DVT prophylaxis: SCDs - Low DVT risk per admission calculator & also on DAPT for CAD Admission and Anticipated Discharge Date Admission Date: February 19, 2020 Subjective 64 yo female reports feeling well. She has no new complaints. Review of Systems Review of Systems: All systems reviewed & are unremarkable except as noted in HPI & below Physical Exam Physical Exam: Constitutional: WD/WN, vitals as above + acute distress Eyes: EOM intact bilaterally; no conjunctival abnormality ENMT: external ear and nose normal, oropharynx normal Neck: trachea midline, no thyromegaly normal visual inspection Respiratory: + respiratory distress, + labored breathing and + tachypneic Auscultation: + crackles; no wheezes Cardiovascular: Rate/Rhythm: regular rhythm and + tachycardic Heart Sounds: normal S1 and normal S2 Vessels: no JVD Extremities: no edema Gastrointestinal (Abdomen): Inspection/Auscultation: abdomen normal to inspection; abdomen not distended Musculoskeletal: no cyanosis or clubbing, extremities motor strength 5/5 Skin: no rashes, warm and dry Neurologic: moves all extremities and awake Psychiatric: Orientation: alert, oriented to person and cooperative Affect: + anxious affect Results & Data Results & Data ([facility]) Vital Signs (Past 12 Hours) Vital Signs Temp Pulse Pulse Resp BP BP Pulse Ox 02/20/20 19:51 36.8 C 92 H 23 96/62 L 97 02/20/20 15:15 36.7 C 87 20 103/70 92 02/20/20 15:07 86 02/20/20 11:01 36.8 C 94 H 19 101/59 L 92 PG Care Time/CCT Total # of Minutes Spent Total Time Spent with Patient: Total time spent is greater than 50% in coordination of care (as documented) at patient's floor/unit and/or counseling patient: Coding Level of Care Code 81824 Subseq Obs Care Lvl 3 Diagnoses Acute on chronic systolic (congestive) heart failure I50.23 Ischemic cardiomyopathy I25.5 Lupus M32.9 Depression with anxiety F41.8 DM2 (diabetes mellitus, type 2) E11.9 Hypothyroidism E03.9 DVT prophylaxis Z29.9 Time Spent (min) 35
[2020-02-21] MEDS: LEVOTHYROXINE SODIUM 100 MCG TABLET PO SCH (06:03)
[2020-02-21 08:17] LABS: Basophils # (auto) 0.02 K/uL (0-0.2); Basophils % (auto) 0.2 %; Eosinophils # (auto) 0.09 K/uL (0-0.5); Hematocrit (blood only) 32.6 % (37-47); Immature Granulocytes # (auto) 0.02 K/uL (0.00-0.02); Immature Granulocytes % (auto) 0.2 %; Lymphocytes # (auto) 2.16 K/uL (1.2-3.4); Lymphocytes % (auto) 23.5 %; Mean Corpuscular Hemoglobin 26.4 pg (25-34); Mean Corpuscular Hgb Conc 30.7 g/dL (32-36); Mean Platelet Volume 9.5 fL (7.4-10.4); Monocytes # (auto) 0.65 K/uL (0.11-0.59); Monocytes % (auto) 7.1 %; Neutrophils # (auto) 6.25 K/uL (1.4-6.5); Platelet Count 287 K/uL (130-400); RDW Coefficient of Variation 16.8 % (11.5-14.5); RDW Standard Deviation 52.4 fL (36.4-46.3); Red Blood Count 3.79 M/uL (4.2-5.4); White Blood Count 9.19 K/uL (4.8-10.8)
[2020-02-21] MEDS: METOPROLOL SUCC 25MG EXT REL TAB PO SCH (08:21)
[2020-02-21] MEDS: PANTOprazole 40 MG TAB PO SCH (08:21)
[2020-02-21] MEDS: POLYETHYLENE (MIRALAX) 17 GM PACK PO SCH (08:21)
[2020-02-21] MEDS: SERTRALINE HCL 50 MG TABLET PO SCH (08:21)
[2020-02-21] MEDS: ATORVASTATIN 40 MG TAB PO SCH (08:22)
[2020-02-21] MEDS: ASPIRIN 81 MG ECTAB PO SCH (08:22)
[2020-02-21] MEDS: TICAGRELOR 90 MG TAB PO SCH (08:23)
[2020-02-21] MEDS: FUROSEMIDE 40 MG in SYRINGE 0 ML IV SCH (08:23)
[2020-02-21 08:46] LABS: BUN Creatinine Ratio 25.1 (10-20); Creatinine Clr Calc Pharmacy 69.7 ml/min; Est GFR (Non-African American) 89.8
[2020-02-21 08:52] LABS: Potassium 3.9 mmol/L (3.5-5.1)
[2020-02-21] MEDS ORDERED: POTASSIUM CHLORIDE 20 MEQ TABCR PO SCH (09:00)
--- NOTE | 2020-02-21 09:35 | Cardiology Progress Note ---
Date of Service February 21, 2020 Assessment & Plan (1) Acute on chronic systolic (congestive) heart failure: Mrs. Loya is a 64-year-old female with a history of Lupus, Rheumatoid Arthritis (on Prednisone chronically), Anemia, GERD, Osteoporosis, Depression, Anxiety, Hypothyroidism, Type 2 Diabetes Mellitus, CAD s/p 3 Drug Eluting Stents December 2019, Chronic Systolic CHF, and an Ischemic Cardiomyopathy (LVEF 20% to 25%) -- who was admitted to [facility] 02/19/2020 with an Acute Exacerbation of Chronic Systolic CHF. Patient offers no complaints today and her breathing has returned to baseline. Patient remains in a sinus rhythm and her HR has improved after increasing Toprol XL dose and adding Digoxin. Her serum K+ is within normal limits today. Patient is stable for discharge from a cardiac standpoint. Recommend the following: -- Continue Toprol XL 25 mg. -- Continue Digoxin 125 mcg daily. -- Resume oral Lasix 30 mg daily and may increase to 40 mg as needed for weight gain or increasing dyspnea. -- Begin Potassium Chloride 20 mEq daily. -- 2 gram low sodium diet. (2) CAD (coronary artery disease), little traverse coronary artery: -- Continue Toprol XL 25 mg daily. -- Continue Aspirin 81 mg daily. -- Continue Brilinta 90 mg b.i.d.. -- Continue Atorvastatin 40 mg daily. (3) Ischemic cardiomyopathy: -- Continue Toprol XL 25 mg daily. -- Continue Digoxin 125 mcg daily. -- Continue oral Lasix 30 mg daily at discharge, may increase to 40 mg as needed for weight gain or increasing dyspnea. -- Prescribe KCL 20 mEq daily at discharge. -- At her follow-up with cardiology would recommend starting Entresto if BP allows. -- Continue LifeVest for prescribed course. (4) Hypokalemia: -- Resolved. -- KCl added to her regimen. Admission and Anticipated Discharge Date Admission Date: February 19, 2020 Subjective Mrs. Loya is being seen in 239-1. Her breathing is at baseline and she feels well overall. She denies any chest pain or anginal symptoms. Her serum potassium is within normal limits today. She is tolerating the increased dose of Metoprolol Succinate ER which is now 25 mg daily. Digoxin was also added yesterday and her HR's have been in the 80's and 90's. She wants to go home today. Physical Exam Physical Exam: GENERAL: Patient lying comfortably in bed, sleeping when I entered the room. HEENT: Head is atraumatic, normocephalic. EOM's intact. Facies symmetric. No perioral cyanosis. NECK: JVP is at the level of the clavicle sitting upright. Carotid upstrokes are + 2 bilaterally without bruits. CHEST/LUNGS: Faint crackles in extreme right base, otherwise clear. CVS: S1 and S2 are regular at 84 bpm without obvious murmurs, gallops, or rubs. PMI is laterally displaced. No lifts, heaves, or thrills. No abdominal aortic or renal bruits. LifeVest in place. ABDOMINAL EXAM: Bowel sounds are present. No masses, organomegaly, or tenderness. EXTREMITIES: No clubbing or cyanosis. No edema. Intact posterior tibial and radial pulses bilaterally. NEUROLOGIC EXAM: Patient is awake, alert, and oriented. Pleasant and cooperative. Answers questions appropriately. Speech is clear. Normal movement in all 4 extremities. TELEMETRY: -- Sinus rhythm with resting HR's of 80 to 90 bpm. Results & Data ([facility]) Vital Signs (Past 12 Hours) Vital Signs Temp Pulse Pulse Resp BP BP Pulse Ox 02/21/20 07:35 89 02/21/20 07:09 36.7 C 92 H 19 102/74 95 02/21/20 03:56 36.9 C 87 18 99/66 L 96 02/20/20 23:13 36.9 C 91 H 19 113/58 L 94 Laboratory Results Laboratory Results - last 24 hr 02/19/20 02/21/20 02/21/20 14:42 08:04 08:04 WBC 9.19 RBC 3.79 L Hgb 10.0 L Hct 32.6 L MCV 86.0 MCH 26.4 MCHC 30.7 L RDW Std Deviation 52.4 H RDW Coeff of Severino 16.8 H Plt Count 287 MPV 9.5 Immature Gran % (Auto) 0.2 Neut % (Auto) 68.0 Lymph % (Auto) 23.5 Pratt % (Auto) 7.1 Eos % (Auto) 1.0 Baso % (Auto) 0.2 Neut # (Auto) 6.25 Lymph # (Auto) 2.16 Pratt # (Auto) 0.65 H Eos # (Auto) 0.09 Baso # (Auto) 0.02 Immature Gran # (Auto) 0.02 POC pH 7.44 POC pCO2 28 L POC pO2 90 POC HCO3 19 POC Total CO2 19 L POC Base Excess -6.0 Sodium 137 Potassium 3.9 D Chloride 106 Carbon Dioxide 24 Anion Gap 7.0 BUN 18 Creatinine 0.72 Est Cr Clr Drug Dosing 69.7 Est GFR ( Amer) 104.0 Est GFR (Non-Af Amer) 89.8 BUN/Creatinine Ratio 25.1 H Glucose 127 H Calcium 9.0 Specimen Hemolysis Medications Administered Active Medications Generic Name Dose Route Start Last Admin Trade Name Freq PRN Reason Stop Dose Admin Acetaminophen 650 mg 02/19/20 17:09 Acetaminophen 325 Mg Tab PO 03/20/20 17:08 Q4H PRN pain/fever Amitriptyline HCl 10 mg 02/19/20 21:00 02/20/20 20:42 Amitriptyline Hcl 10 Mg Tab PO 03/20/20 20:59 10 mg HS MARY Administration Aspirin 81 mg 02/20/20 09:00 02/21/20 08:22 Aspirin 81 Mg Ectab PO 03/21/20 08:59 81 mg DAILY MARY Administration Atorvastatin Calcium 40 mg 02/20/20 09:00 02/21/20 08:22 Atorvastatin 40 Mg Tab PO 03/21/20 08:59 40 mg DAILY MARY Administration Digoxin 0.125 mg 02/20/20 16:00 02/20/20 15:07 Digoxin 0.125 Mg Tab PO 03/21/20 15:59 0.125 mg DAILY@1600 MARY Administration Furosemide 40 mg/ Syringe 4 mls @ 4 mls/min 02/20/20 09:00 02/21/20 08:23 IV 03/21/20 08:59 4 mls/min DAILY MARY Administration Influenza Virus Vaccine Quadrival 0.5 ml 02/25/20 09:00 Influenza Virus Quad Vaccine 0.5 Ml Syr IM 02/25/20 09:01 .ONCE ONE Levothyroxine Sodium 100 mcg 02/20/20 06:30 02/21/20 06:03 Levothyroxine Sodium 100 Mcg Tablet PO 03/21/20 06:29 100 mcg DAILYBB MARY Administration Melatonin 9 mg 02/19/20 21:00 02/20/20 21:31 Melatonin 3 Mg Tab PO 11/10/20 20:59 9 mg HS MARY Administration Metoprolol Succinate 25 mg 02/20/20 11:15 02/21/20 08:21 Metoprolol Succ 25mg Ext Rel Tab PO 03/21/20 11:14 25 mg DAILY MARY Administration Ondansetron HCl 4 mg 02/19/20 17:09 Ondansetron Inj 2 Mg/Ml 2 Ml Vial IV 03/20/20 17:08 Q4H PRN Nausea Oxycodone/Acetaminophen 1 tab 02/20/20 20:45 02/20/20 20:52 Oxycodone/Apap 7.5/325mg Tab PO 03/05/20 20:44 1 tab Q6H PRN Administration Moderate Pain (Scale Score 5-6) Pantoprazole Sodium 40 mg 02/20/20 09:00 02/21/20 08:21 Pantoprazole 40 Mg Tab PO 03/21/20 08:59 40 mg DAILY MARY Administration Polyethylene Glycol 17 gm 02/20/20 09:00 02/21/20 08:21 Polyethylene (Miralax) 17 Gm Pack PO 03/21/20 08:59 Not Given DAILY MARY Potassium Chloride 20 meq 02/21/20 09:00 02/21/20 08:22 Potassium Chloride 20 Meq Tabcr PO 03/22/20 08:59 20 meq QAM MARY Administration Prednisone 10 mg 02/19/20 21:00 02/20/20 20:42 Prednisone 10 Mg Tablet PO 03/20/20 20:59 10 mg HS MARY Administration Sertraline HCl 50 mg 02/20/20 09:00 02/21/20 08:21 Sertraline Hcl 50 Mg Tablet PO 03/21/20 08:59 50 mg DAILY MARY Administration Ticagrelor 90 mg 02/19/20 21:00 02/21/20 08:23 Ticagrelor 90 Mg Tab PO 03/20/20 20:59 90 mg BID MARY Administration PG Care Time/CCT Total # of Minutes Spent Total Time Spent with Patient: Total time spent is greater than 50% in coordination of care (as documented) at patient's floor/unit and/or counseling patient:25 Coding Level of Care Code 57276 Subseq Hosp Care Lvl 3 Diagnoses Acute on chronic systolic (congestive) heart failure I50.23 CAD (coronary artery disease), little traverse coronary artery I25.10 Ischemic cardiomyopathy I25.5 Hypokalemia E87.6
[2020-02-25] MEDS ORDERED: INFLUENZA VIRUS QUAD VACCINE 0.5 ML SYR IM ONE (09:00)
[2020-02-25] MEDS ORDERED: PNEUMOCOCCAL POLYSACCHARIDES 25 MCG/0.5 ML VIAL/SYR IM ONE (09:00)
[2020-02-25] MEDS ORDERED: PNEUMOCOCCAL ADMINISTRATION CHARGE ONE (09:00)
[2020-02-25] MEDS ORDERED: INFLUENZA ADMINISTRATION CHARGE ONE (09:00)
--- NOTE | 2020-02-27 23:09 | Discharge Summary ---
Date of Service February 21, 2020 Admission HPI Per Admitting Provider 64yo F w/ hx of systolic heart failure and ischemic cardiomyopathy who presents with signs/symptoms of systolic CHF exacerbation. The patient was in the hospital until 02/02/2020 for fainting spells that may have been related to adrenal insufficiency from stopping long-term Lasix. At that time, she was followed by cardiology and noted to have ischemic cardiomyopathy with an EF 20- 25%. On discharge, her weight was 110 lbs. Since discharge, she has been gaining about 2 lbs per week and is now up to 116 lbs on her home scale per her daughter. Her daughter reports this is good because they felt she was too skinny and they have been trying to have her build up weight. On , she noted she had some shortness of breath, though her daughter relates that she really only started to complain about it/report it last night. The patient feels this is a "constriction" in her chest. She denies any chest pain, palpitations, abdominal pain, nausea, or other symptoms. Daughter reports that she is anxious and restless at present with some occasional confusion. Principal Diagnosis Acute on chronic CHF Discharge Exam Constitutional: WD/WN, vitals as above Eyes: EOM intact bilaterally; no conjunctival abnormality ENMT: external ear and nose normal, oropharynx normal Neck: trachea midline, no thyromegaly normal visual inspection Respiratory: Auscultation: CTA BL no wheezes Cardiovascular: Rate/Rhythm: regular rhythm and + tachycardic Heart Sounds: normal S1 and normal S2 Vessels: no JVD Extremities: no edema Gastrointestinal (Abdomen): Inspection/Auscultation: abdomen normal to inspection; abdomen not distended Musculoskeletal: no cyanosis or clubbing, extremities motor strength 5/5 Skin: no rashes, warm and dry Neurologic: moves all extremities and awake Psychiatric: Orientation: alert, oriented to person and cooperative Discharge Data Allergies Allergy/AdvReac Type Severity Reaction Status Date / Time metoclopramide Allergy Severe Breathing Unverified 02/27/20 14:29 Trouble Consultations 02/19/20 14:29 ED Decision to Admit Stat 02/19/20 17:09 Consult Cardiology Routine Ordered Studies 02/19/20 12:52 US point of care ultrasound Stat Hospital Course (1) Acute on chronic systolic (congestive) heart failure: CXR and BNP on admission point toward acute systolic CHF exacerbation. - BiPap and/or O2 as needed, though ABG in ED points toward no hypercapnea - Lasix 40 mg IV x 1 given in the ED; continue 40 mg IV daily -- Increase Toprol XL to 25 mg. At discharge: -- Corrected Hypokalemia. Recheck as outpatient -- continue Digoxin 125 mcg daily for negative chronotropic and positive inotropic proprerties. -- resume home diuretic -- cont BB. -- Daily body weights, I&O's. -- 2 gram low sodium diet. (2) Ischemic cardiomyopathy: Known CAD with 3 SOLEDAD placed ~12/2019 in [place]. No present chest pain. Troponin stable from priors (even after >12 hours of symptoms). EKG with no acute ischemic changes. - Continue ASA/ticagrelor, beta-sneha, statin - As above (3) Lupus: Long-standing lupus and RA. - Continue prednisone 10 mg PO HS - No need for stress-dose steroids unless changes in BP. Presently BP is at baseline ~110/70. (4) Depression with anxiety: No overt symptoms on admission. - Continue home SSRI - Hold amitriptyline for altered mental status, but can restart one respiratory status improved (5) DM2 (diabetes mellitus, type 2): A1c was 6.0% in 01/2020 on no medications. Unclear if this reflects prior diagnosis or - Monitor (6) Hypothyroidism: TSH was 2.9 in 01/2020. No signs/symptoms of hypo-/hyperthyroidism. - Continue home Synthroid 100 mcg (7) DVT prophylaxis: SCDs - Low DVT risk per admission calculator & also on DAPT for CAD Total Time Total Time Spent Total Time Spent (In Minutes): 35 Total Time Includes: Examination of the Patient, Discharge Planning and Medication Reconciliation Discharge Plan Discharge Items Patient Disposition: Home - Self-Care Reason For Visit: SYSTOLIC CHF EXACERBATION Discharge Diagnosis: Systolic CHF exacerbation Activity: Resume your previous activity Non-emergency contact: Primary Care Provider Call non-emergency contact if: you have any medication questions Follow-up/Referrals: Luba Mendez PA-C [Physician Ground Services Instructor] - 02/27/20 2:00 pm (Congestive Heart Failure Program Appointment Information Early follow up is essential to managing your heart failure. An appointment has been scheduled for you with the [facility] Heart [facility] Program within 7 days of discharge. Anticipate this visit to be 30-60 minutes long. Please expect a cardiac technologist phone call from one of our nurses approximately 48 hours from discharge. They will also be placing an order for lab work to be completed 1-2 days prior to your heart failure follow up appointment. Please be sure to have this done so we can go over the results when you come in. Office Location The cardiology office building is located in front of the hospital at [address] [facility]. Bring the following with you to your follow-up doctor appointments: Please bring your daily weight log any discharge paperwork all of your medication bottles with you to this visit. ) PCP,NO [Primary Care Provider] - Diet: Regular Addtl Attending Provider Instructions: Call your Primary Care doctor if any of the following symptoms or problems start or get worse: * Shortness of breath or difficulty breathing * Wake up at night short of breath * Chest pain * Cough * Swelling of your hands, feet, or legs * More fatigued or tired with your normal activity * Palpitations - sudden fast heart beats WEIGHT * Weigh yourself every morning after using the bathroom. * Use the same scale. * Wear the same amount of clothing. * Write your weight down on a chart. * Call your Primary Care doctor if you gain more than 2-3 pounds in 1-2 days. MEDICATIONS * Use this discharge instruction sheet for medication instructions. * Take your medications at the time your doctor ordered. * Do not skip a dose of your medicines. * If you miss a dose of medicine, take it as soon as possible, but DO NOT DOUBLE A DOSE. * Read your medicine information when you get home. * Know all of the side effects of your medicine. If in doubt, ask your pharmacist * Call your Primary Care doctor's office if you have any side effects. * Be sure all of your doctors know what medicine and herbs you take (including cold, flu, and herbal medicine). Take the following with you to your follow-up doctor appointments: * Weight Chart * Medication List * List of questions Do not drink excessive alcohol, beer or wine. Check BMP in 1-2 weeks. Pending Studies at Discharge: No Stand-Alone Forms: My [employer], Smoking Cessation Medications and DC Order Prescriptions: New digoxin [Digitek] 125 mcg (0.125 mg) Tablet 0.125 mg PO DAILY@1600 Qty: 30 RF: 0 potassium chloride 10 mEq tablet extended release 10 meq PO DAILY Qty: 30 RF: 0 Continued metoprolol succinate 25 mg tablet extended release 24 hr 12.5 mg PO DAILY Qty: 15 RF: 3 atorvastatin 40 mg Tablet 40 mg PO DAILY RF: 0 prednisone 5 mg Tablet 10 mg PO HS RF: 0 omeprazole 40 mg Capsule,Delayed Release(Dr/Ec) 40 mg PO DAILY RF: 0 levothyroxine 100 mcg Tablet 100 mcg PO 0600 RF: 0 amitriptyline 10 mg Tablet 10 - 20 mg PO HS RF: 0 aspirin 81 mg Tablet,Chewable 81 mg PO DAILY RF: 0 furosemide 20 mg Tablet 20 mg PO DAILY RF: 0 polyethylene glycol 3350 [Miralax] 17 gram/dose Powder 17 g PO DAILY RF: 0 oxycodone-acetaminophen [Percocet] 7.5-325 mg Tablet 1 tab PO Q6H PRN (Reason: Moderate Pain (Scale Score 5-6)) RF: 0 sertraline [Zoloft] 50 mg Tablet 50 mg PO DAILY RF: 0 melatonin 10 mg Tablet 10 mg PO HS RF: 0 ferrous sulfate [iron] 325 mg (65 mg iron) tablet 325 mg PO DAILY Qty: 30 RF: 0 Prolia 60 mg/mL syringe 60 mg SUBCUT .COMPLEX RF: 0 Discontinued potassium 99 mg Tablet 99 mg PO DAILY RF: 0 No Action Brilinta 90 mg tablet 90 mg PO BID Qty: 60 RF: 5 Discharge Orders: Discharge Order (Routine); Ordered 02/21/20 Ordered By: Ander Ferreira/Other Patient Handouts: Digoxin tablets or capsules Admission Data Admit Date/Time: 02/19/20 14:58 Attending Provider: Ander Pineda Admit Provider: Celso Watson Primary Care Provider: PCP,NO Other Providers: Celso Watson ; Ricardo Mena Other Interventions: Discharge Summary Assessment (RN) Last Done: 02/21/20 09:25 Coding Level of Care Code 12330 OBS Care - Discharge Diagnoses Acute on chronic systolic (congestive) heart failure I50.23 Ischemic cardiomyopathy I25.5 Lupus M32.9 Depression with anxiety F41.8 DM2 (diabetes mellitus, type 2) E11.9 Hypothyroidism E03.9 DVT prophylaxis Z29.9 Time Spent (min) 35
== END 2020-02-21 10:07 | disposition home or self-care (01) ==
LOC: ED 12:31 → 2S 12:31 → SUATTDRO 14:58 → 2S 16:41